=== PATIENT | female | born 1990 | race American Indian/Alaskan Native ===

== ENCOUNTER 2016-09-30 21:57 | Emergency (ER) | payer MEDICAID, OTHER ==
[2016-09-30 22:03] VITALS: BP 130/74; PULSE 104; RESP 18; TEMP 98.2; O2SAT 99
--- NOTE | 2016-09-30 22:54 | ED PDOC ---
HPI: CCC, URI, Sore Throat Time Seen by Provider: 09/30/16 22:52 Chief Complaint (Nursing): Cough, Cold, Congestion Chief Complaint (Provider): uri History Per: Patient (25 y/o female h/o Schizophrenia here with complaint of URI /nasal congestion x 2 days associated with chills. No vomiting/diarrhea/etc.) Past Medical History Reviewed: Historical Data, Nursing Documentation, Vital Signs Vital Signs: Last Vital Signs Temp 98.2 F 09/30/16 21:58 Pulse 104 H 09/30/16 21:58 Resp 18 09/30/16 21:58 BP 130/74 09/30/16 21:58 Pulse Ox 99 09/30/16 21:58 - Medical History PMH: Anxiety, Depression, Schizophrenia - Family History Family History: States: No Known Family Hx - Home Medications Home Medications: Ambulatory Orders Medication Instructions Recorded Ciprofloxacin/Dexamethasone 4 drop OT BID #1 bottle 04/03/14 [Ciprodex 0.3%-0.1% 7.5 Ml] Neomycin/Polymyxin/Hydrocortis 3 drop OT TID #1 bottle 04/04/14 [Cortisporin Otic Susp] Acetic Acid/Antipyrine/Benzo 2 drop AD TID #1 eliot 05/30/14 [Auralgan 14 ml] Acetaminophen [Acetaminophen Extra 2 tab PO Q6 PRN #24 tablet 09/30/16 Strength] Fluticasone Propionate [Flonase] 2 spr IN DAILY #1 bottle 09/30/16 Non-Formulary 1 ea IN DAILY PRN #1 ea 09/30/16 - Allergies Allergies/Adverse Reactions: Allergies Allergy/AdvReac Type Severity Reaction Status Date / Time No Known Allergies Allergy Verified 04/03/14 10:25 Review of Systems ROS Statement: Except As Marked, All Systems Reviewed And Found Negative ENT: Positive for: Nose Congestion Physical Exam - Reviewed Nursing Documentation Reviewed: Yes Vital Signs Reviewed: Yes - Physical Exam Appears: Positive for: Well, Non-toxic, No Acute Distress Head Exam: Positive for: ATRAUMATIC, NORMAL INSPECTION, NORMOCEPHALIC Skin: Positive for: Normal Color, Warm, DRY Eye Exam: Positive for: EOMI, Normal appearance, PERRL ENT: Positive for: Normal ENT Inspection, Nasal Congestion Neck: Positive for: Normal, Painless ROM Cardiovascular/Chest: Positive for: Regular Rate, Rhythm Respiratory: Positive for: CNT, Normal Breath Sounds Gastrointestinal/Abdominal: Positive for: Normal Exam, Bowel Sounds, Soft Back: Positive for: Normal Inspection Extremity: Positive for: Normal ROM Neurologic/Psych: Positive for: Alert, Oriented - ECG O2 Sat by Pulse Oximetry: 99 - Progress ED Course And Treament: acetaminophen 975mg x 1 dose Patient is on multiple medications for schizophrenia. d/w her use of nasal saline rinse instead of nasal decongestants. Disposition - Clinical Impression Clinical Impression: URI (upper respiratory infection) - Patient ED Disposition Is Patient to be Admitted: No - Disposition Disposition: Routine/Home Disposition Time: 22:55 Condition: FAIR Prescriptions: Acetaminophen [Acetaminophen Extra Strength] 2 tab PO Q6 PRN #24 tablet PRN Reason: Headache Fluticasone Propionate [Flonase] 2 spr IN DAILY #1 bottle Non-Formulary 1 ea IN DAILY PRN #1 ea PRN Reason: Cough And Congestion Instructions: Upper Respiratory Infection (ED) Forms: [facility] ED School/Work Excuse
== END 2016-09-30 23:42 | disposition home or self-care (01) ==
LOC: H.ER 21:57
DX: J06.9 Acute upper respiratory infection, unspecified (principal); F20.9 Schizophrenia, unspecified; F41.9 Anxiety disorder, unspecified

== ENCOUNTER 2016-11-17 13:26 | Inpatient (IN) | payer MEDICAID, OTHER ==
--- NOTE | 2016-11-17 14:39 | ED PDOC ---
HPI: Psych/Substance Abuse Time Seen by Provider: 11/17/16 13:33 Chief Complaint (Nursing): Psychiatric Evaluation Chief Complaint (Provider): Anxiety History Per: Patient History/Exam Limitations: no limitations Onset/Duration Of Symptoms: Days (x3) Current Symptoms Are (Timing): Still Present Suicide/Self Injury Attempted (Context): None Modifying Factor(s): None Severity: Mild Associated Symptoms: Anxiety, Depression, Paranoia Additional Complaint(s): Patient is a 26 year old female presenting ot the ED complaining of anxiety x3 days. Anxiety is associated with depression and paranoia. Patient has not been taking her psych medication for the past 3 days because she left her medication at a friends house who is currently on vacation. Denies hallucinations, suicidal ideation, and homicidal ideation. Patient subsequently complains of cough and congestion. Denies fever, shortness of breath, or chest pain. PMD: none Past Medical History Reviewed: Historical Data, Nursing Documentation, Vital Signs Vital Signs: Last Vital Signs Temp 97.3 F L 11/17/16 13:56 Pulse 106 H 11/17/16 13:56 Resp 18 11/17/16 13:56 BP 110/42 L 11/17/16 13:56 Pulse Ox 98 11/17/16 13:56 - Medical History PMH: Anxiety, Depression, Schizophrenia - Family History Family History: States: No Known Family Hx - Home Medications Home Medications: Ambulatory Orders Medication Instructions Recorded Ciprofloxacin/Dexamethasone 4 drop OT BID #1 bottle 04/03/14 [Ciprodex 0.3%-0.1% 7.5 Ml] Neomycin/Polymyxin/Hydrocortis 3 drop OT TID #1 bottle 04/04/14 [Cortisporin Otic Susp] Acetic Acid/Antipyrine/Benzo 2 drop AD TID #1 eliot 05/30/14 [Auralgan 14 ml] Acetaminophen [Acetaminophen Extra 2 tab PO Q6 PRN #24 tablet 09/30/16 Strength] Fluticasone Propionate [Flonase] 2 spr IN DAILY #1 bottle 09/30/16 Non-Formulary 1 ea IN DAILY PRN #1 ea 09/30/16 - Allergies Allergies/Adverse Reactions: Allergies Allergy/AdvReac Type Severity Reaction Status Date / Time No Known Allergies Allergy Verified 11/17/16 19:12 Review of Systems ROS Statement: Except As Marked, All Systems Reviewed And Found Negative Constitutional: Negative for: Fever Cardiovascular: Negative for: Chest Pain Respiratory: Negative for: Shortness of Breath Psych: Positive for: Anxiety, Depression, Other (paranoia). Negative for: Suicidal ideation Physical Exam - Reviewed Nursing Documentation Reviewed: Yes Vital Signs Reviewed: Yes - Physical Exam Appears: Positive for: Well, Non-toxic, No Acute Distress Head Exam: Positive for: ATRAUMATIC, NORMAL INSPECTION, NORMOCEPHALIC Skin: Positive for: Normal Color, Warm, DRY Eye Exam: Positive for: Normal appearance, EOMI Neck: Positive for: Normal, Painless ROM Cardiovascular/Chest: Positive for: Regular Rate, Rhythm. Negative for: Gallop , Murmur Respiratory: Positive for: Normal Breath Sounds. Negative for: Accessory Muscle Use, Respiratory Distress Extremity: Positive for: Normal ROM Neurologic/Psych: Positive for: Alert, Oriented, Mood/Affect (seems apprehensive but cooperative) - Laboratory Results Result Diagrams: 11/17/16 16:06 11/17/16 16:06 - ECG O2 Sat by Pulse Oximetry: 98 (RA) Pulse Ox Interpretation: Normal - Progress ED Course And Treament: Pt. evaluated by crisis and arrangements made for admission. Medical Decision Making Medical Decision Making: Time: 13:35 Impression: 26 y/o female c/o anxiety paranoia and depression Plan: Drug Screen [facility] Crisis Eval Scribe Attestation: Documented by Karlie Guzman acting as a scribe for Yovani Trejo. Provider Attestation: All medical record entries made by the Scribe were at my direction and personally dictated by me. I have reviewed the chart and agree that the record accurately reflects my personal performance of the history, physical exam, medical decision making, and the department course for this patient. I have also personally directed, reviewed, and agree with the discharge instructions and disposition. Disposition - Clinical Impression Clinical Impression: Schizoaffective disorder - Patient ED Disposition Is Patient to be Admitted: No - Disposition Disposition Time: 16:43 Condition: STABLE
[2016-11-17 16:14] LABS: BASO # 0.1 K/uL (0.0-0.2); EOS # 0.2 K/uL (0.0-0.7); NEUT # 4.8 K/uL (1.8-7.0); WHITE BLOOD COUNT 8.3 K/uL (4.8-10.8)
[2016-11-17 16:24] LABS: BASO % 0.6 % (0.0-2.0); HEMATOCRIT 36.1 % (34.0-47.0); LYMPH # 2.4 K/uL (1.0-4.3); LYMPH % 28.5 % (20.0-40.0); MEAN CELL VOLUME 92.7 fl (81.0-99.0); MEAN CORPUSCULAR HEMOGLOBIN 30.7 pg (27.0-31.0); MEAN CORPUSCULAR HGB CONC 33.2 g/dL (33.0-37.0); MEAN PLATELET VOLUME 9.5 fl (7.2-11.7); MONO # 0.9 K/uL (0.0-0.8); MONO % 11.3 % (0.0-10.0); NEUT % 57.6 % (50.0-75.0); NRBC % 0.2 % (0.0-0.0); RED CELL DISTRIBUTION WIDTH 15.3 % (11.5-14.5)
[2016-11-17 17:08] LABS: ALB/GLOB RATIO 1.1 (1.0-2.1); ALCOHOL SERUM < 10 mg/dl (0-10); ALKALINE PHOSPHATASE 59 U/L (38-126); ALT/SGPT 27 U/L (9-52); AST/SGOT 20 U/L (14-36); BILIRUBIN,TOTAL 0.1 mg/dl (0.2-1.3); BLOOD UREA NITROGEN 8 mg/dl (7-17); CARBON DIOXIDE 26 mmol/L (22-30); CHLORIDE 103 mmol/L (98-107); GFR AFRICAN-AMERICAN > 60; GLUCOSE,RANDOM 94 mg/dL (65-105); POTASSIUM 4.2 MMOL/L (3.6-5.0); SODIUM 140 mmol/l (132-148); TOTAL PROTEIN 8.6 G/DL (6.3-8.2)
[2016-11-17 18:31] LABS: URINE BILIRUBIN NEGATIVE (NEGATIVE); URINE COLOR AMBER (YELLOW); URINE GLUCOSE (UA) NEG (Normal); URINE KETONE TRACE mg/dL (NEGATIVE); URINE LEUKOCYTE ESTERASE NEG Leu/uL (Negative); URINE PROTEIN 30 mg/dL (NEGATIVE); URINE UROBILINOGEN 0.2-1.0 mg/dL (0.2-1.0)
[2016-11-17 18:32] LABS: URINE BLOOD TRACE (NEGATIVE)
[2016-11-17 23:14] VITALS: O2SAT 98
[2016-11-18] MEDS ORDERED: Magnesium Hydroxide Susp 30 ml UD PO PRN (01:41)
[2016-11-18] MEDS ORDERED: DiphenhydrAMINE 50 mg/ml Inj IM PRN (01:41)
[2016-11-18] MEDS ORDERED: Alum-Mag Hydrox-Simethicone Susp (30 mL) PO PRN (01:41)
--- NOTE | 2016-11-18 08:59 | PCM.PSYCH ---
Initial Psychiatric Evaluation - Initial Psychiatric Evaluation Type of Admission: Voluntary Legal Status: Capacity Chief Complaint (in patient's own words): "I'm been depressed" Patient's Reaction to Hospitalization: HPI: 26 y/o female presenting the ER with her [facility]. Pt reports current sx of depression and anxiety which have worsened over the past few weeks. Pt reports that her meds were left in a friend's apartment who is now on vacation and unavailable to contact. Pt reports that she has been experiencing "bad thoughts" triggered by current stressors, however denied that thoughts were related to SI or HI. Pt denied current SI/HI, attempts, intent, or plans. Pt reports a hx of auditory hallucinations, however denied current hallucinations. Pt reports currently feeling paranoid and feels that her medications are not helpful in treating her sx. Pt denied substance abuse. Collateral history obtained from ER steel construction worker: Pt's [facility] case finisher Skyler Hawley reports that pt contacted him today requesting to be transported to the hospital. Pt stated that she was having "bad thoughts", however refused to further describe the nature of her thoughts. Pt has been without medication for several days due to leaving it at her friend's house who is currently out of town. Pt has a hx of Schizoaffective Disorder, with current anxious thoughts and depressed mood. Mr. Hawley reports that the pt has never explicitly stated thoughts of wanting to harm herself or others, however Mr. Hawley reports that he is concerned that the pt may not be forthcoming with severity of thoughts. Pt is currently receiving outpatient [place] with [facility] [place] and has been compliant with treatment. PPHx: Pt was hospitalized at [facility] in May 2016. Pt is currently receiving outpatient services through [facility] [place] and is [facility] to [facility]. Pt has been compliant with treatment. Cogentin 1mg BID, Buspar 10 mg PO TID , Depakote 500 mg PO BID, Invega 156mg (next due December 10), Trazodone 50 mg PO HS , Celexa 10 mg PO Daily. MHx: Anemia All: NKDA SHx: 12th grade. Unemployed. Denies drug use or etoh use. FHx: Pt reports that her mother attempted suicide a few years ago by attempting to jump out of a window. Current Medications: Active Medications Generic Name Dose Route Start Last Admin Trade Name Freq PRN Reason Stop Dose Admin Acetaminophen 650 mg 05/22/17 01:41 Tylenol 325mg Tab PO Q4 PRN for pain 4-7 Al Hydrox/Mg Hydrox/Simethicone 30 ml 11/18/16 01:41 Maalox Plus 30 Ml PO Q4 PRN Dyspepsia Diphenhydramine HCl 50 mg 11/18/16 01:41 Benadryl IM Q6 PRN Extrapyramidal S/S Unable PO Diphenhydramine HCl 50 mg 11/18/16 01:41 Benadryl PO Q6 PRN Extrapyramidal Symptoms Lorazepam 2 mg 11/18/16 01:41 Ativan IM Q4 PRN Anxiety/Agitation,Unable PO Lorazepam 2 mg 11/18/16 01:41 Ativan PO Q4 PRN Anxiety/Agitation Magnesium Hydroxide 30 ml 11/18/16 01:41 Milk Of Magnesia PO HS PRN Constipation Past Psychiatric History - Past Psychiatric History Previous Treatment History: Inpatient Pertinent Medical Hx (Current Medical&Sleep Prob, Allergies): Allergies Allergy/AdvReac Type Severity Reaction Status Date / Time No Known Allergies Allergy Verified 11/17/16 19:12 Ciprofloxacin/Dexamethasone [Ciprodex 0.3%-0.1% 7.5 Ml] 4 drop OT BID #1 bottle 04/03/14 Neomycin/Polymyxin/Hydrocortis [Cortisporin Otic Susp] 3 drop OT TID #1 bottle 04/04/14 Acetic Acid/Antipyrine/Benzo [Auralgan 14 ml] 2 drop AD TID #1 eliot 05/30/14 Acetaminophen [Acetaminophen Extra Strength] 2 tab PO Q6 PRN #24 tablet Fluticasone Propionate [Flonase] 2 spr IN DAILY #1 bottle 09/30/16 Non-Formulary 1 ea IN DAILY PRN #1 ea 09/30/16 Review of Systems - Review of Systems All systems: reviewed and no additional remarkable complaints except - Psychiatric Psychiatric: As Per HPI, Anxiety, Depression, Mood Swings, Paranoia Mental Status Examination - Personal Presentation Personal Presentation: Looks stated age (Poor hygiene, hair unkempt) - Affect Affect: Broad - Motor Activity Motor Activity: Calm - Reliability in Providing Information Reliability in Providing Information: Fair - Speech Speech: Organized - Mood Mood: Depressed, Anxious - Formal Thought Process Formal Thought Process: Paranoia - Obsessions/Compulsions Obsessions: No Compulsions: No - Cognitive Functions Orientation: Person, Place, Situation, Time Sensorium: Alert Estimate of Intelligence: Average Judgement: Intact, as evidence by: Insight regarding need for hospitalization Memory: Recent intact, as evidence by: Ability to recall events of the day, Remote intact, as evidenced by: Abilit to recall sig. life events, Remote intact , as evidenced by: Ability to recall historical events - Risk Risk: Diminished functioning - Strength & Assets Inventory Strength & Assets Inventory: Cooperative DSM 5 DX - DSM 5 DSM 5 Diagnosis: Schizoaffective Disorder - Recommended/Plan of Treatment Treatment Recommendations and Plan of Treatment: -Admit to psychiatry -Restart home medications: Depakote 500 mg PO BID, Cogentin 1 mg PO BID, Buspar 10 mg PO TID -Increase Celexa to 20 mg PO Daily -Change Trazodone to 50 mg PO PRN as the patient reports that it makes her too tired -Invega Sustenna injection due 12/10/16, as per patient -Individual, group and milieu tx -Disposition planning Projected ELOS: 4-7 days Discharge Plan and Discharge Criteria: -Discharge when psychiatrically stable - Smoking Cessation Smoking Cessation Initiated: No Reason for not providing: Not indicated
[2016-11-18] MEDS: Divalproex 500 mg DR(BID formulation) PO SCH ×2 (10:51→16:20)
--- NOTE | 2016-11-18 14:14 | CP.PCM.CON ---
History of Present Illness - History of Present Illness History of Present Illness: 26 yo female with no significant PMH admitted to Psyche unit because of worsening depression ad anxiety. Pt also complained of nasal congestion and coughing productive with yelow sputum the last 3 days. Review of Systems - Review of Systems All systems: reviewed and no additional remarkable complaints except (aside from those mentioned above, 12 point system review were negative by me) Past Patient History - Infectious Disease Hx of Infectious Diseases: None - Tetanus Immunizations Tetanus Immunization: Unknown - Past Medical History & Family History Past Medical History?: No Past Family History: Reviewed and not pertinent - Past Social History Smoking Status: Never Smoked Chewing Tobacco Use: No Cigar Use: No Alcohol: None Drugs: Denies - CARDIAC Hx Cardiac Disorders: No - PULMONARY Hx Respiratory Disorders: No Hx Bronchitis: Yes - NEUROLOGICAL Hx Neurological Disorder: No - HEENT Hx HEENT Problems: No - RENAL Hx Chronic Kidney Disease: No - ENDOCRINE/METABOLIC Hx Endocrine Disorders: No - HEMATOLOGICAL/ONCOLOGICAL Hx Blood Disorders: No - INTEGUMENTARY Hx Dermatological Problems: No - MUSCULOSKELETAL/RHEUMATOLOGICAL Hx Musculoskeletal Disorders: No - GENITOURINARY/GYNECOLOGICAL Hx Genitourinary Disorders: No - PSYCHIATRIC Hx Depression: Yes - ANESTHESIA Hx Anesthesia: No Meds Allergies/Adverse Reactions: Allergies Allergy/AdvReac Type Severity Reaction Status Date / Time No Known Allergies Allergy Verified 11/17/16 19:12 - Medications Medications: Current Medications Acetaminophen (Tylenol 325mg Tab) 650 mg PO Q4 PRN PRN Reason: for pain 4-7 Al Hydrox/Mg Hydrox/Simethicone (Maalox Plus 30 Ml) 30 ml PO Q4 PRN PRN Reason: Dyspepsia Benztropine Mesylate (Cogentin) 1 mg PO BID [facility] Last Admin: 11/18/16 10:51 Dose: 1 mg Buspirone HCl (Buspar) 10 mg PO TID [facility] Last Admin: 11/18/16 12:10 Dose: 10 mg Citalopram Hydrobromide (Celexa) 20 mg PO DAILY [facility] Last Admin: 11/18/16 10:51 Dose: 20 mg Diphenhydramine HCl (Benadryl) 50 mg IM Q6 PRN PRN Reason: Extrapyramidal S/S Unable PO Diphenhydramine HCl (Benadryl) 50 mg PO Q6 PRN PRN Reason: Extrapyramidal Symptoms Divalproex Sodium (Depakote Dr(*Bid*)) 500 mg PO BID TRISTIN Last Admin: 11/18/16 10:51 Dose: 500 mg Lorazepam (Ativan) 2 mg IM Q4 PRN PRN Reason: Anxiety/Agitation,Unable PO Lorazepam (Ativan) 2 mg PO Q4 PRN PRN Reason: Anxiety/Agitation Magnesium Hydroxide (Milk Of Magnesia) 30 ml PO HS PRN PRN Reason: Constipation Trazodone HCl (Desyrel) 50 mg PO HS PRN PRN Reason: Insomnia Physical Exam - Constitutional Appears: No Acute Distress - Head Exam Head Exam: ATRAUMATIC - Eye Exam Eye Exam: absent: Scleral icterus - ENT Exam ENT Exam: Mucous Membranes Moist - Neck Exam Neck exam: Negative for: Meningismus - Respiratory Exam Respiratory Exam: absent: Rhonchi, Wheezes, Respiratory Distress - Cardiovascular Exam Cardiovascular Exam: REGULAR RHYTHM, +S1, +S2 - GI/Abdominal Exam GI & Abdominal Exam: Soft. absent: Tenderness - Rectal Exam Rectal Exam: Deferred - Extremities Exam Extremities exam: Negative for: pedal edema - Back Exam Back exam: NORMAL INSPECTION - Neurological Exam Neurological exam: Alert, Oriented x3 - Psychiatric Exam Psychiatric exam: Normal Affect - Skin Skin Exam: Dry, Intact Results - Vital Signs Recent Vital Signs: Last Vital Signs Temp 97.4 F L 11/18/16 06:00 Pulse 93 H 11/18/16 06:00 Resp 18 11/18/16 06:00 BP 118/73 11/18/16 06:00 Pulse Ox 98 11/17/16 23:13 - Labs Result Diagrams: 11/17/16 16:06 11/17/16 16:06 Labs: Laboratory Results - last 24 hr 11/17/16 17:25 Valproic Acid 60.0 Assessment & Plan (1) Depression Status: Acute Comment: psyche is managing
[2016-11-19] MEDS: Divalproex 500 mg DR(BID formulation) PO SCH ×2 (08:31→17:01)
--- NOTE | 2016-11-19 10:01 | PCM.PYCHPN ---
Psychiatric Progress Note - Psychiatric Progress Note Patient seen today, length of contact: Patient evaluated, case discussed with team, chart reviewed, 35 min Patient Chief Complaint: "I'm feeling paranoid." Problems Identified/Issues Discussed: Patient reports that she is feeling very paranoid and worried that someone want to harm her. She reports that she continues to feel depressed and distressed by the paranoia. +Anxiety. NO SI/HI. Medication Change: Yes (Start Risperdal 1 mg PO Daily) Medical Record Reviewed: Yes Consults ordered or reviewed: Medicine Consult Mental Status Examination - Cognitive Function Orientation: Person, Place, Situation, Time Memory: Intact Attention: WNL Concentration: WNL Association: WN Fund of Knowledge: WN - Mood Mood: Depressed, Anxious - Affect Affect: Constricted - Speech Speech: Appropriate - Formal Thought Process Formal Thought Process: Paranoia Psychotic Thoughts and Behaviors: +Paranoia - Suicidal Ideation Suicidal Ideation: No - Homicidal Ideation Homicidal Ideation: No Goal/Treatment Plan - Goal/Treatment Plan Need for Continued Stay: Remain at risks for inpatient hospitalization, Discharge may exacerbated symptoms Progress Toward Problem(s) and Goals/Treatment Plan: 26 yo female w/ history of schizoaffective disorder, continues to report significant paranoia and depression. Needs continued hospitalization for treatment and stabilization. -Continue Depakote 500 mg PO BID, Cogentin 1 mg PO BID, Buspar 10 mg PO TID -Continue Celexa 20 mg PO Daily -Start Risperdal 1 mg PO Daily -Continue Trazodone 50 mg PO PRN -Invega Sustenna injection due 12/10/16, as per patient -Individual, group and milieu tx -Disposition planning Estimated Date of D/C: 11/25/16
[2016-11-19] MEDS: guaiFENesin DM 200 mg-20 mg/10 ml UD PO PRN ×2 (12:58→19:14)
[2016-11-20] MEDS: guaiFENesin DM 200 mg-20 mg/10 ml UD PO PRN ×2 (08:35→17:15)
[2016-11-20] MEDS: Divalproex 500 mg DR(BID formulation) PO SCH ×2 (08:36→17:15)
--- NOTE | 2016-11-20 10:08 | RAD ---
HISTORY: cough with yellow sputum COMPARISON: No prior. TECHNIQUE: Chest PA and lateral FINDINGS: LUNGS: No focal consolidation. The interstitial markings are slightly increased and coarsened with a few scattered peribronchial cuffing changes. Rule out sequela of reactive/inflammatory airway disease and or viral illness. . Note is made of a vague small elliptical shaped nodular density right lateral upper lung field overlying the right anterior 2nd rib. This could represent confluence of shadow artifact however possibility of a small osteoma or bone island versus mild parenchymal nodule not completely excluded. Followup radiographs in 2 months suggested to assess stability. PLEURA: No significant pleural effusion identified. No pneumothorax apparent. CARDIOVASCULAR: Normal. OSSEOUS STRUCTURES: No significant abnormalities. VISUALIZED UPPER ABDOMEN: Normal. OTHER FINDINGS: None. IMPRESSION: No focal consolidation. The interstitial markings are slightly increased and coarsened with a few scattered peribronchial cuffing changes. Rule out sequela of reactive/inflammatory airway disease and or viral illness. Note is made of a vague small elliptical shaped nodular density right lateral upper lung field overlying the right anterior 2nd rib. This could represent confluence of shadow artifact however possibility of a small osteoma or bone island versus mild parenchymal nodule not completely excluded. Followup radiographs in 2 months suggested to assess stability.
--- NOTE | 2016-11-20 10:27 | PCM.PYCHPN ---
Psychiatric Progress Note - Psychiatric Progress Note Patient seen today, length of contact: Patient evaluated, case discussed with team, chart reviewed, 35 min Patient Chief Complaint: "I'm feeling less paranoid." Problems Identified/Issues Discussed: Patient reports that she is feeling less paranoid and she believes the Risperdal is helping. No adverse effects to medications noted. She reports that she continues to feel intermittently distressed by the paranoia. NO SI/ HI. Medication Change: No Medical Record Reviewed: Yes Consults ordered or reviewed: Medicine consult Mental Status Examination - Cognitive Function Orientation: Person, Place, Situation, Time Memory: Intact Attention: WNL Concentration: WNL Association: WNL Fund of Knowledge: [facility] Decription of patient's judgement and insights: Fair I/J - Mood Mood: Anxious - Affect Affect: Constricted - Speech Speech: Appropriate - Formal Thought Process Formal Thought Process: Paranoia Psychotic Thoughts and Behaviors: +Paranoia is improving - Suicidal Ideation Suicidal Ideation: No - Homicidal Ideation Homicidal Ideation: No Goal/Treatment Plan - Goal/Treatment Plan Need for Continued Stay: Remain at risks for inpatient hospitalization, Discharge may exacerbated symptoms Progress Toward Problem(s) and Goals/Treatment Plan: 26 yo female w/ history of schizoaffective disorder, now reporting some improvement in her depression and paranoia, needs continued hospitalization for treatment and stabilization. -Continue Depakote 500 mg PO BID, Cogentin 1 mg PO BID, Buspar 10 mg PO TID -Continue Celexa 20 mg PO Daily -Continue Risperdal 1 mg PO Daily -Continue Trazodone 50 mg PO PRN -Invega Sustenna injection due 12/10/16, as per patient -Individual, group and milieu tx -Disposition planning- Possible discharge Friday if the patient continues to improve clinically. Estimated Date of D/C: 11/22/16
--- NOTE | 2016-11-21 08:57 | PCM.PYCHPN ---
Psychiatric Progress Note - Psychiatric Progress Note Patient seen today, length of contact: Patient evaluated, case discussed with team, chart reviewed, 35 min Patient Chief Complaint: "I'm feeling less paranoid." Problems Identified/Issues Discussed: No significant events overnight. Patient continues to improve clinically. Patient reports that she is feeling less paranoid and she believes the Risperdal is helping. No adverse effects to medications noted. NO SI/HI. Medication Change: No Medical Record Reviewed: Yes Mental Status Examination - Cognitive Function Orientation: Person, Place, Situation, Time Memory: Intact Attention: WNL Concentration: WNL Association: WNL Fund of Knowledge: [facility] Decription of patient's judgement and insights: Fair I/J - Mood Mood: Anxious - Affect Affect: Constricted - Speech Speech: Appropriate - Formal Thought Process Formal Thought Process: Paranoia Psychotic Thoughts and Behaviors: +Paranoia is improving - Suicidal Ideation Suicidal Ideation: No - Homicidal Ideation Homicidal Ideation: No Goal/Treatment Plan - Goal/Treatment Plan Need for Continued Stay: Remain at risks for inpatient hospitalization, Discharge may exacerbated symptoms Progress Toward Problem(s) and Goals/Treatment Plan: 26 yo female w/ history of schizoaffective disorder, now reporting improvement in her depression and paranoia, needs continued hospitalization for treatment and stabilization. -Continue Depakote 500 mg PO BID, Cogentin 1 mg PO BID, Buspar 10 mg PO TID -Continue Celexa 20 mg PO Daily -Continue Risperdal 1 mg PO Daily -Stop Trazodone -Invega Sustenna injection due 12/10/16, as per patient -Individual, group and milieu tx -Disposition planning- Likely discharge Friday if the patient continues to improve clinically. Estimated Date of D/C: 11/22/16 - Smoking Cessation Smoking Cessation Initiated: No Reason for not providing: Not indicated
[2016-11-21] MEDS: guaiFENesin DM 200 mg-20 mg/10 ml UD PO PRN ×2 (09:00→17:06)
[2016-11-21] MEDS: Divalproex 500 mg DR(BID formulation) PO SCH ×2 (09:00→17:05)
[2016-11-22 06:04] VITALS: BP 98/59; PULSE 66; RESP 19; TEMP 97.1
--- NOTE | 2016-11-22 08:23 | PCM.PYCHDC ---
Mental Status Examination - Mental Status Examination Orientation: Person, Place, Situation, Time Memory: Intact Mood: Neutral Affect: Broad Speech: Appropriate Attention: WNL Concentration: WNL Association: WNL Fund of Knowledge: WNL Formal Thought Process: No Impairment Description of patient's judgement and insight: Fair I/J Psychotic Thoughts and Behaviors: No AH/VH/paranoia Suicidal Ideation: No Current Homicidal Ideation?: No Discharge Summary - Discharge Note Reason for Hospitalization: HPI: 26 y/o female presenting the ER with her [facility] case checker. Pt reports current sx of depression and anxiety which have worsened over the past few weeks. Pt reports that her meds were left in a friend's apartment who is now on vacation and unavailable to contact. Pt reports that she has been experiencing "bad thoughts" triggered by current stressors, however denied that thoughts were related to SI or HI. Pt denied current SI/HI, attempts, intent, or plans. Pt reports a hx of auditory hallucinations, however denied current hallucinations. Pt reports currently feeling paranoid and feels that her medications are not helpful in treating her sx. Pt denied substance abuse. Collateral history obtained from ER stamping die try out worker: Pt's [facility] case checker Skyler Hawley reports that pt contacted him today requesting to be transported to the hospital. Pt stated that she was having "bad thoughts", however refused to further describe the nature of her thoughts. Pt has been without medication for several days due to leaving it at her friend's house who is currently out of town. Pt has a hx of Schizoaffective Disorder, with current anxious thoughts and depressed mood. Mr. Hawley reports that the pt has never explicitly stated thoughts of wanting to harm herself or others, however Mr. Hawley reports that he is concerned that the pt may not be forthcoming with severity of thoughts. Pt is currently receiving outpatient treatment with [facility] partial care program and has been compliant with treatment. PPHx: Pt was hospitalized at [facility] in May 2016. Pt is currently receiving outpatient services through [facility] partial care and is linked to [facility]. Pt has been compliant with treatment. Cogentin 1mg BID, Buspar 10 mg PO TID , Depakote 500 mg PO BID, Invega 156mg (next due December 10), Trazodone 50 mg PO HS , Celexa 10 mg PO Daily. MHx: Anemia All: NKDA SHx: 12th grade. Unemployed. Denies drug use or etoh use. FHx: Pt reports that her mother attempted suicide a few years ago by attempting to jump out of a window. Consultations:: List each consultation separately and include: 1. Reason for request. 2. Findings. 3. Follow-up Consultations: Medicine consult Summary of Hospital Course include:: 1. Description of specific treatment plan utilized for patients during their course of treatmen. 2. Summarize the time- course for resolution of acute symptoms and/or regressed behaviors. 3. Describe issues identified and worked on during hospitalization. 4. Describe medication utilized. 5. Describe medical problems identified and treated. 6. Reassessment of suicide risk Summary of Hospital Course: Patient was admitted to the hospital and she was stabilized on the medications listed below. She participated in individual and group therapy. Patient no longer reports depression or paranoia. She would benefit from continued outpatient follow-up and medications. Patient started on Azithromycin for a URI. - Final Diagnosis (DSM 5) Condition upon Discharge: FAIR DSM 5: Schizoaffective Disorder Disposition: HOME/ ROUTINE Follow-up Treatment Plan: 26 yo female w/ history of schizoaffective disorder, now reporting improvement in her depression and paranoia, is psychiatrically stable for discharge. -Continue Depakote 500 mg PO BID, Cogentin 1 mg PO BID, Buspar 10 mg PO TID -Continue Celexa 20 mg PO Daily -Continue Risperdal 1 mg PO Daily -Stop Trazodone -Invega Sustenna injection due 12/10/16, should be 234 mg Qmonthly -Individual, group and milieu tx -Discharge today with outpatient follow-up Prescriptions/Medication Reconciliation: Azithromycin [Zithromax] 250 mg PO DAILY #3 tab Benztropine [Cogentin] 1 mg PO BID #60 tab busPIRone [Buspar] 10 mg PO TID #90 tab Citalopram [celEXA] 20 mg PO DAILY #30 tab Divalproex [Depakote DR(*BID*)] 500 mg PO BID #60 tcp Fluticasone Propionate [Flonase] 2 spr TESSA DAILY #1 bottle risperiDONE [RisperDAL Tab] 1 mg PO DAILY #30 tab - Smoking Cessation Smoking Cessation Medication prescribed: No Reason for not providing: Not indicated - Antipsychotic Medications Pt discharged on 2 or more routine antipsychotic medications: Yes - Justification for 2 or more meds Plan to taper monotherapy: List medications: Patient only temporarily on two antipsychotics (Risperdal PO and Invega Sustenna) until she can get her next standing dosage of Invega Sustenna, then will go back to taking one antipsychotic
[2016-11-22] MEDS: Divalproex 500 mg DR(BID formulation) PO SCH (09:19)
[2016-11-22] MEDS: guaiFENesin DM 200 mg-20 mg/10 ml UD PO PRN (09:24)
== END 2016-11-22 13:00 | disposition home or self-care (01) | DRG 430 ==
LOC: H.ER 13:26 → H.ERHOLD 16:43 → H.STEP 22:11
PROVIDERS: ADMIT Psychiatry & Neurology Psychiatry; ATTEND Psychiatry & Neurology Psychiatry
DX: F25.9 Schizoaffective disorder, unspecified (principal); F22 Delusional disorders; F32.9 Major depressive disorder, single episode, unspecified; F41.9 Anxiety disorder, unspecified; D64.9 Anemia, unspecified; J06.9 Acute upper respiratory infection, unspecified

== ENCOUNTER 2017-06-17 12:39 | Inpatient (IN) | payer MEDICAID, OTHER ==
--- NOTE | 2017-06-17 14:23 | ED PDOC ---
HPI: Psych/Substance Abuse Time Seen by Provider: 06/17/17 13:37 Chief Complaint (Nursing): Psychiatric Evaluation Chief Complaint (Provider): "I feel paranoid" History Per: Patient History/Exam Limitations: no limitations Onset/Duration Of Symptoms: Days Current Symptoms Are (Timing): Still Present Additional Complaint(s): Pt states she was in partial care and her case filler wanted her to come to the ER and be evaluated. Pt reports taking medication as prescribed. Pt denies SI/ HI. Pt states she is feeling paranoid at school and work. Past Medical History Reviewed: Historical Data, Nursing Documentation, Vital Signs Vital Signs: Last Vital Signs Temp 98.7 F 06/17/17 13:23 Pulse 101 H 06/17/17 13:23 Resp 16 06/17/17 13:23 BP 144/80 06/17/17 13:23 Pulse Ox 98 06/17/17 13:23 - Medical History PMH: Anemia, Anxiety, Bronchitis, Depression, Schizophrenia Denies: Chronic Kidney Disease - Surgical History Surgical History: No Surg Hx - Family History Family History: States: No Known Family Hx - Living Arrangements Living Arrangements: With Family - Social History Current smoker - smoking cessation education provided: No Alcohol: None Drugs: Denies - Home Medications Home Medications: Ambulatory Orders Medication Instructions Recorded Azithromycin [Zithromax] 250 mg PO DAILY #3 tab 11/21/16 Benztropine [Cogentin] 1 mg PO BID #60 tab 11/21/16 Citalopram [celEXA] 20 mg PO DAILY #30 tab 11/21/16 Divalproex [Depakote DR(*BID*)] 500 mg PO BID #60 tcp 11/21/16 Fluticasone Propionate [Flonase] 2 spr TESSA DAILY #1 bottle 11/21/16 busPIRone [Buspar] 10 mg PO TID #90 tab 11/21/16 risperiDONE [RisperDAL Tab] 1 mg PO DAILY #30 tab 11/21/16 - Allergies Allergies/Adverse Reactions: Allergies Allergy/AdvReac Type Severity Reaction Status Date / Time haloperidol [From Haldol] Allergy ANGIOEDEMA Verified 06/17/17 13:23 Review of Systems ROS Statement: Except As Marked, All Systems Reviewed And Found Negative Constitutional: Negative for: Fever, Chills Psych: Positive for: Psychosis. Negative for: Anxiety, Suicidal ideation Physical Exam - Reviewed Nursing Documentation Reviewed: Yes Vital Signs Reviewed: Yes - Physical Exam Appears: Positive for: Well, Non-toxic, No Acute Distress Head Exam: Positive for: ATRAUMATIC, NORMAL INSPECTION, NORMOCEPHALIC Skin: Positive for: Normal Color, Warm, DRY Eye Exam: Positive for: Normal appearance ENT: Positive for: Normal ENT Inspection Neck: Positive for: Normal, Painless ROM Cardiovascular/Chest: Positive for: Regular Rate, Rhythm Respiratory: Positive for: CNT, Normal Breath Sounds Gastrointestinal/Abdominal: Positive for: Normal Exam, Bowel Sounds, Soft Back: Positive for: Normal Inspection Extremity: Positive for: Normal ROM Neurologic/Psych: Positive for: Alert, Oriented - Laboratory Results Result Diagrams: 06/17/17 14:40 06/17/17 14:40 - ECG O2 Sat by Pulse Oximetry: 98 Medical Decision Making Medical Decision Makin - Crisis aware. 1740 - Crisis in room evaluation patient. Pt admitted by patient for evaluation. Disposition - Clinical Impression Clinical Impression: Schizophrenia - Patient ED Disposition Is Patient to be Admitted: Yes - Disposition Disposition Time: 18:34 Condition: STABLE - Pt Status Changed To: Hospital Disposition Of: Inpatient - Admit Certification Admit to Inpatient:: After my assessment, the patient will require hospitalization for at least two midnights. This is because of the severity of symptoms shown, intensity of services needed, and/or the medical risk in this patient being treated as an outpatient. - POA Present On Arrival: None
[2017-06-17 14:51] LABS: HEMOGLOBIN 12.3 g/dL (12.0-16.0); MEAN CELL VOLUME 91.4 fl (81.0-99.0); MEAN CORPUSCULAR HEMOGLOBIN 30.3 pg (27.0-31.0); MEAN CORPUSCULAR HGB CONC 33.1 g/dL (33.0-37.0); RBC 4.07 Mil/uL (3.80-5.20); RED CELL DISTRIBUTION WIDTH 13.1 % (11.5-14.5); WHITE BLOOD COUNT 6.8 K/uL (4.8-10.8)
[2017-06-17 14:58] LABS: ALB/GLOB RATIO 1.2 (1.0-2.1); ALBUMIN 4.5 g/dL (3.5-5.0); ALT/SGPT 27 U/L (9-52); AST/SGOT 17 U/L (14-36); BLOOD UREA NITROGEN 10 mg/dl (7-17); CALCIUM 9.3 mg/dL (8.4-10.2); GFR AFRICAN-AMERICAN > 60; GFR NON-AFRICAN AMERICAN > 60
[2017-06-17 15:11] LABS: BARBITURATES, UR NEGATIVE (NEGATIVE); BENZODIAZEPINES, UR NEGATIVE (NEGATIVE); OPIATES, UR NEGATIVE (NEGATIVE); PHENCYCLIDINE, UR NEGATIVE (NEGATIVE)
[2017-06-17] MEDS ORDERED: Alum-Mag Hydrox-Simethicone Susp (30 mL) PO PRN (23:04)
[2017-06-17] MEDS ORDERED: Magnesium Hydroxide Susp 30 ml UD PO PRN (23:04)
[2017-06-17] MEDS ORDERED: DiphenhydrAMINE 50 mg/ml Inj IM PRN (23:04)
--- NOTE | 2017-06-18 02:11 | PCM.BM ---
<Yuki Gonzalez - Last Filed: 06/18/17 02:09> Treatment Plan Problems - Problems identified on initial assessmt Delusions Date Initiated: 06/18/17 Time Initiated: 02:09 Assessment reference: NA Status: Active Auditory Hallucinations Date Initiated: 06/18/17 Time Initiated: 02:09 Assessment reference: NA Status: Active Treatment assets and liabiliti Patient Assests: cooperative, ADL independent, physically healthy, negotiates basic needs Patient Liabilities: live alone, poor support system - Milieu Protocol Maintain good personal hygiene: daily Encourage regular showers, every shift Remind patient to perform daily oral care Maintain personal safety: every shift Educate patient to report safety concerns to staff, every shift Monitor environment for contraband/sharps Medication safety: Monitor for expected outcome, potential side effects: every shift, Assess barriers to learning: every shift, Assess readiness for medication education: every shift <Maru Rivas - Last Filed: 06/19/17 15:48> Treatment assets and liabiliti Patient Assests: adapts well, cooperative, ADL independent, physically healthy, good support system, negotiates basic needs Patient Liabilities: poor support system Family Contact Family involvement: Family/SO is involved Family contact: Patient agrees to contact, Family has been contacted by patient , Telephone contact initiated by staff Family contact name: Nate(aunt)([phone]) Family contacted how many times per week?: 2 Family contact comment: Wind Farm [employer]er placed call to patients aunt (Nate [phone] ) to discuss precursors to hospitalization and progress on 3NP. Patients aunt reports that she checks in with patient frequently but has been unable to visit recently due to having to care for patients grandmother. Patients aunt reports that patient used to reside with her but started to get threatening towards her children and had to find alternate housing. Nate expressed concerns regarding possibility of patient harming herself or others while decompensated. As per patients aunt patient has hx of being inconsistently compliant with medications. Nate requested psychoeducation regarding mental illness and medication management. Psychoeducation provided. Wind Farm Designer emphasized importance of compliance with aftercare to reduce risk of future hospitalizations and improve functioning in the community. Wind Farm Designer notified Nate that patient will be placed on a 1:1 on 3NP secondary to inabiliy to contract for saftey at present time. Patients aunt expressed understanding of the above. Wind Farm Designer provided unit payphones and visitation hours. Wind Farm Designer to continue providing clinical updates through-out patients hospitalization. - Outside Agency Agency 1 Care involvment: Following patient during stay, Other Agency contact name: [facility] Agency contact number: [phone] Agency 2 Care involvment: Following patient during stay, Other Agency contact name: [facility] Agency contact number: [phone] - Goals for Treatment Patient goals for treatment: Patient to continue stabilization on 3NP through medication management and group/supportive therapy. Patient to be encouraged to attend groups regularly to promote self-awareness, compliance, and improve insight, coping skills and self-esteem. Patient to be provided with referral for appropriate level of aftercare to reduce risk of future hospitalizations and ensure safety in the community. Discharge/Continuing Care - Education Needs Education Needs: Family Medication, Family Coping Skills, Family Community resources, Family Aftercare Safety Plan, Patient Medication, Patient Coping Skills, Patient Community resources, Patient Aftercare Safety Plan - Discharge Discharge Criteria: Tolerates medication w/o severe side effects, Free of Suicidal thoughts, Free of Homicidal thoughts, Free of paranoid thoughts, Free of agitation, Normal sleep pattern, Ability to care for self, Reduction of target symptoms Discharge to:: Home, Other <Abby Garibay - Last Filed: 06/20/17 12:00> - Diagnosis (1) Schizoaffective disorder Status: Acute Interventions: 06/20/17 12:00 psychotherapy pharmacotherapy
[2017-06-18 08:43] LABS: T4 8.92 ug/dl (5.5-11.0)
--- NOTE | 2017-06-18 14:02 | PCM.PSYCH ---
Initial Psychiatric Evaluation - Initial Psychiatric Evaluation Type of Admission: Voluntary Legal Status: Capacity Chief Complaint (in patient's own words): i hear voices telling me to stop Patient's Reaction to Hospitalization: pt requested help History of Present Illness and Precipitating Events: pt. is a 26 year old AA single female previous diagnosis of schizoaffective disorder, [facility] Pt. reported coming to ER because her worker told her to come here. Pt. reported being paranoid, having thoughts of being followed and persecutted from people who worked with her because they believe she killed her mother. Pt. is fearful she would hurt herself due to these intruding thoughts. Pt. also reported non command auditory hallucinations making her anxious, pt requested admission for medication stabilization Current Medications: Active Medications Generic Name Dose Route Start Last Admin Trade Name Freq PRN Reason Stop Dose Admin Acetaminophen 650 mg 06/17/17 23:04 Tylenol 325mg Tab PO Q4 PRN pain level 3 to 7 Al Hydrox/Mg Hydrox/Simethicone 30 ml 06/17/17 23:04 Maalox Plus 30 Ml PO Q4 PRN Dyspepsia Benztropine Mesylate 0.5 mg 06/18/17 09:00 06/18/17 12:42 Cogentin PO 0.5 mg DAILY TRISTIN Administration Diphenhydramine HCl 50 mg 06/17/17 23:04 Benadryl IM Q6 PRN Extrapyramidal S/S Unable PO Diphenhydramine HCl 50 mg 06/17/17 23:04 Benadryl PO Q6 PRN Extrapyramidal Symptoms Diphenhydramine HCl 50 mg 06/17/17 23:08 Benadryl PO HS PRN Sleep Lorazepam 2 mg 06/17/17 23:04 Ativan IM Q4 PRN Anxiety/Agitation,Unable PO Lorazepam 2 mg 06/17/17 23:04 Ativan PO Q4 PRN Anxiety/Agitation Magnesium Hydroxide 30 ml 06/17/17 23:04 Milk Of Magnesia PO HS PRN Constipation Mirtazapine 30 mg 06/17/17 22:00 06/17/17 23:56 Remeron PO 30 mg HS TRISTIN Administration Risperidone 2 mg 06/18/17 09:00 06/18/17 12:43 Risperdal Tab PO 2 mg BID TRISTIN Administration Trazodone HCl 50 mg 06/17/17 22:00 06/17/17 23:56 Desyrel PO 50 mg HS TRISTIN Administration Past Psychiatric History - Past Psychiatric History Previous Treatment History: Inpatient Explanation of prior treatment: multiple inpatient hospitalizations for psychotic symptoms History of Abuse: denied History of ETOH/Drug Use: denied History of Family Illness: denied Pertinent Medical Hx (Current Medical&Sleep Prob, Allergies): Allergies Allergy/AdvReac Type Severity Reaction Status Date / Time haloperidol [From Haldol] Allergy ANGIOEDEMA Verified 06/17/17 13:23 Benztropine [Cogentin] 0.5 mg PO DAILY 06/17/17 Citalopram Hydrobromide [Citalopram HBr] 40 mg PO DAILY 06/17/17 Mirtazapine [Remeron] 30 mg PO HS 06/17/17 Risperidone [Risperdal] 2 mg PO Q12H 06/17/17 busPIRone [Buspar] 10 mg PO Q12H 06/17/17 traZODone [Desyrel] 50 mg PO HS 06/17/17 Mental Status Examination - Personal Presentation Personal Presentation: Looks older than stated age Additional comments: unkempt - Affect Affect: Constricted, Blunted - Motor Activity Motor Activity: Psychomotor Retardation - Reliability in Providing Information Reliability in Providing Information: Poor, due to alteration in thoughts, Poor , due to altered mood - Speech Speech: Disorganized - Mood Mood: Anxious - Formal Thought Process Formal Thought Process: Delusions, Paranoia, Circumstantial - Hallucinations/Delusions Hallucinations: Auditory Additional comments: pt reported non command auditory hallucinations - Obsessions/Compulsions Obsessions: No Compulsions: No - Cognitive Functions Orientation: Person, Place Sensorium: Alert Attention/Concentration: Easily distracted Abstract Thinking: [place] Judgement: Imparied, as evidence by: Poor judgement, Imparied, as evidence by: Lack of insight into illness - Risk Risk: Diminished functioning - Strength & Assets Inventory Strength & Assets Inventory: Life experience - Limitations Additional comments: poor social support DSM 5 DX - DSM 5 DSM 5 Diagnosis: schizoaffectine disorder bipolar - Recommended/Plan of Treatment Treatment Recommendations and Plan of Treatment: start risperidone 1mg bid will attaempt to change pt from invega to risperidone consta group and supportive therapy Projected ELOS: 7 days Prognosis: guarded Discharge Plan and Discharge Criteria: pt no longer disorganized
[2017-06-19] MEDS ORDERED: risperiDONE Consta 25mg/2ml Syringe IM ONE (13:10)
--- NOTE | 2017-06-19 13:29 | PCM.PYCHPN ---
Psychiatric Progress Note - Psychiatric Progress Note Patient seen today, length of contact: pt evaluated discussed with team chart reviewed Patient Chief Complaint: I will try the risperidone injection Problems Identified/Issues Discussed: pt seen in bed, dressed in a hospital gown, unkempt , isolative, pt reported continues to experience non command auditory hallucinations making her anxious, also feeling down and anhedonic discussed with pt starting risperidone consta injection, for more pharmacological efficacy as she continues to experience psychotic symptoms on Invegs, pt agreed denied any current S/H I denied side effects of oral risperidone Medical Problems: multiple inpatient hospitalizations for psychotic symptoms DSM 5 Symptoms Update: schizoaffective disorder bipolar Medication Change: Yes (start risperidone consta) Medical Record Reviewed: Yes Mental Status Examination - Cognitive Function Orientation: Person, Place Memory: Intact Attention: Poor Concentration: Poor Association: WNL Fund of Knowledge: Poor - Mood Mood: Depressed, Anxious - Affect Affect: Constricted, Blunted - Speech Speech: Soft Additional comments: underproductive - Formal Thought Process Formal Thought Process: Delusions, Paranoia, Circumstantial - Suicidal Ideation Suicidal Ideation: No - Homicidal Ideation Homicidal Ideation: No Goal/Treatment Plan - Goal/Treatment Plan Need for Continued Stay: Discharge may exacerbated symptoms Progress Toward Problem(s) and Goals/Treatment Plan: decrease oral risperidone to 1mg bid start risperidone consta 25mg im vistaril prn for anxiety, remeron 30mg qhs for depression group and supportive therapy
--- NOTE | 2017-06-19 13:40 | CP.PCM.CON ---
<Moreno Maurer - Last Filed: 06/19/17 13:45> History of Present Illness - History of Present Illness History of Present Illness: HPI: Patient is a 26 y/o female with Schitzoaffective disorder who presented to the hospital because she was having paranoid thoughts and auditory hallucinations that she believes may have led her to harm herself or others. Patient denies suicidal ideations or attempts but states that she was pressured to kill herself by these voices and was advised by her lead case manager to go to the hospital. Pt states that she has been compliant with all of her medications. PMD: [place] PMHX: Schitzoaffective Disorder PSurgical Hx: Denies Allergies: Haloperidol Family Hx: Uncle- Schitzophrenia Social: Lives in custodial, denies alcohol use, smoking, or illicit drug use Past Patient History - Infectious Disease Hx of Infectious Diseases: None - Tetanus Immunizations Tetanus Immunization: Unknown - Past Medical History & Family History Past Medical History?: No - Past Social History Smoking Status: Never Smoked - CARDIAC Hx Cardiac Disorders: No - PULMONARY Hx Respiratory Disorders: Yes Hx Bronchitis: Yes - NEUROLOGICAL Hx Neurological Disorder: No - HEENT Hx HEENT Problems: No - RENAL Hx Chronic Kidney Disease: No - ENDOCRINE/METABOLIC Hx Endocrine Disorders: No - HEMATOLOGICAL/ONCOLOGICAL Hx Blood Disorders: Yes Hx Anemia: Yes - INTEGUMENTARY Hx Dermatological Problems: No - MUSCULOSKELETAL/RHEUMATOLOGICAL Hx Musculoskeletal Disorders: No - GASTROINTESTINAL Hx Gastrointestinal Disorders: No - GENITOURINARY/GYNECOLOGICAL Hx Genitourinary Disorders: No - PSYCHIATRIC Hx Substance Use: No - SURGICAL HISTORY Hx Surgeries: No - ANESTHESIA Hx Anesthesia: No Meds Allergies/Adverse Reactions: Allergies Allergy/AdvReac Type Severity Reaction Status Date / Time haloperidol [From Haldol] Allergy ANGIOEDEMA Verified 06/17/17 13:23 - Medications Medications: Current Medications Acetaminophen (Tylenol 325mg Tab) 650 mg PO Q4 PRN PRN Reason: pain level 3 to 7 Al Hydrox/Mg Hydrox/Simethicone (Maalox Plus 30 Ml) 30 ml PO Q4 PRN PRN Reason: Dyspepsia Diphenhydramine HCl (Benadryl) 50 mg IM Q6 PRN PRN Reason: Extrapyramidal S/S Unable PO Diphenhydramine HCl (Benadryl) 50 mg PO Q6 PRN PRN Reason: Extrapyramidal Symptoms Diphenhydramine HCl (Benadryl) 50 mg PO HS PRN PRN Reason: Sleep Hydroxyzine Pamoate (Vistaril) 25 mg PO TID PRN PRN Reason: Anxiety Lorazepam (Ativan) 2 mg IM Q4 PRN PRN Reason: Anxiety/Agitation,Unable PO Lorazepam (Ativan) 2 mg PO Q4 PRN PRN Reason: Anxiety/Agitation Last Admin: 06/19/17 12:52 Dose: 2 mg Magnesium Hydroxide (Milk Of Magnesia) 30 ml PO HS PRN PRN Reason: Constipation Mirtazapine (Remeron) 30 mg PO HS TRISTIN Last Admin: 06/18/17 21:44 Dose: 30 mg Risperidone (Risperdal M-Tab) 1 mg PO DAILY TRISTIN Physical Exam - Constitutional Appears: Well, Non-toxic, No Acute Distress, Unkempt - Head Exam Head Exam: ATRAUMATIC, NORMAL INSPECTION - Eye Exam Eye Exam: Normal appearance - ENT Exam ENT Exam: Mucous Membranes Moist - Respiratory Exam Respiratory Exam: Clear to Auscultation Bilateral. absent: Rales, Wheezes - Cardiovascular Exam Cardiovascular Exam: REGULAR RHYTHM, +S1, +S2 - GI/Abdominal Exam GI & Abdominal Exam: Soft. absent: Tenderness - Neurological Exam Neurological exam: Alert, Oriented x3 - Psychiatric Exam Psychiatric exam: Anxious, Depressed, Flat Affect Additional comments: Tearful - Skin Skin Exam: Normal Color Results - Vital Signs Recent Vital Signs: Last Vital Signs Temp 98.1 F 06/18/17 16:32 Pulse 110 H 06/18/17 16:32 Resp 20 06/18/17 16:32 BP 128/78 06/18/17 16:32 Pulse Ox 98 06/17/17 22:12 - Labs Result Diagrams: 06/17/17 14:40 06/17/17 14:40 Labs: Laboratory Results - last 24 hr 06/18/17 06/18/17 08:03 08:03 Hemoglobin A1c 5.0 RPR Nonreactive Assessment & Plan - Assessment and Plan (Free Text) Assessment: Patient is a 26 y/o female with Schitzoaffective disorder admitted for suicidal ideation in the presence of persecutory auditory hallucinations. #Schizoaffective Disorder, acute -as per psychiatry -Currently receiving Risperidone injections -Ativan prn #Sinus Tachycardia -Likely anxiety related -Thyroid labs normal -U tox normal -Will continue to monitor #Diet -Regular <James Díaz - Last Filed: 06/19/17 15:26> Meds - Medications Medications: Current Medications Acetaminophen (Tylenol 325mg Tab) 650 mg PO Q4 PRN PRN Reason: pain level 3 to 7 Al Hydrox/Mg Hydrox/Simethicone (Maalox Plus 30 Ml) 30 ml PO Q4 PRN PRN Reason: Dyspepsia Chlorpromazine (Thorazine) 50 mg PO Q12 PRN PRN Reason: Agitation Diphenhydramine HCl (Benadryl) 50 mg IM Q6 PRN PRN Reason: Extrapyramidal S/S Unable PO Diphenhydramine HCl (Benadryl) 50 mg PO Q6 PRN PRN Reason: Extrapyramidal Symptoms Diphenhydramine HCl (Benadryl) 50 mg PO HS PRN PRN Reason: Sleep Hydroxyzine Pamoate (Vistaril) 25 mg PO TID PRN PRN Reason: Anxiety Lorazepam (Ativan) 2 mg IM Q4 PRN PRN Reason: Anxiety/Agitation,Unable PO Lorazepam (Ativan) 2 mg PO Q4 PRN PRN Reason: Anxiety/Agitation Last Admin: 06/19/17 12:52 Dose: 2 mg Magnesium Hydroxide (Milk Of Magnesia) 30 ml PO HS PRN PRN Reason: Constipation Mirtazapine (Remeron) 30 mg PO HS TRISTIN Last Admin: 06/18/17 21:44 Dose: 30 mg Risperidone (Risperdal M-Tab) 1 mg PO DAILY TRISTIN Results - Vital Signs Recent Vital Signs: Last Vital Signs Temp 98.1 F 06/18/17 16:32 Pulse 110 H 06/18/17 16:32 Resp 20 06/18/17 16:32 BP 128/78 06/18/17 16:32 Pulse Ox 98 06/17/17 22:12 - Labs Result Diagrams: 06/17/17 14:40 06/17/17 14:40 Labs: Laboratory Results - last 24 hr 06/18/17 08:03 RPR Nonreactive Assessment & Plan - Assessment and Plan (Free Text) Plan: Patient seen and examined, agree with findings and plan as documented by the resident. Sinus tachycardia likely secondary to anxiety as Urine toxicology and thyroid panel normal with no signs of infection. Will continue to monitor.
[2017-06-20] MEDS ORDERED: Risperidone M tab 1 MG PO SCH (09:00)
[2017-06-20] MEDS: Risperidone M TAB 2 MG PO SCH ×2 (13:56→17:26)
--- NOTE | 2017-06-20 14:30 | PCM.PYCHPN ---
Psychiatric Progress Note - Psychiatric Progress Note Patient seen today, length of contact: pt evaluated discussed with team chart reviewed Patient Chief Complaint: I hear the voices telling me to jump off the window Problems Identified/Issues Discussed: pt seen in bed, dressed in a hospital gown, unkempt , isolative, pt reported continues to experience command auditory hallucinations making her anxious, reported the voices telling her she is worthless and she should end her life by jumping out of the window also feeling down and anhedonic, increased sleep and poor energy Medical Problems: multiple inpatient hospitalizations for psychotic symptoms DSM 5 Symptoms Update: schizoaffective disorder depressed Medication Change: Yes (increase oral risperidone) Medical Record Reviewed: Yes Mental Status Examination - Cognitive Function Orientation: Person, Place Memory: Intact Attention: Poor Concentration: Poor Association: WNL Fund of Knowledge: Poor - Mood Mood: Depressed, Anxious - Affect Affect: Constricted, Blunted - Speech Speech: Soft - Formal Thought Process Formal Thought Process: Delusions, Paranoia, Circumstantial - Suicidal Ideation Suicidal Ideation: No - Homicidal Ideation Homicidal Ideation: No Goal/Treatment Plan - Goal/Treatment Plan Need for Continued Stay: Severe depression anxiety, Discharge may exacerbated symptoms Progress Toward Problem(s) and Goals/Treatment Plan: increase oral risperidne to 2mg bid start thorazine 100mg q8 prn as pt is allergic to haldol continue risperidone consta 25mg im vistaril prn for anxiety, remeron 30mg qhs for depression 1:1 precautions for suicidal risk group and supportive therapy Estimated Date of D/C: 06/27/17
[2017-06-20] MEDS: guaiFENesin 200 mg/10 ml Syrup UD PO PRN (17:26)
[2017-06-21] MEDS: Risperidone M TAB 2 MG PO SCH ×2 (09:06→17:02)
--- NOTE | 2017-06-21 09:20 | PCM.PYCHPN ---
Psychiatric Progress Note - Psychiatric Progress Note Patient seen today, length of contact: Patient evaluated, case discussed with team, chart reviewed Patient Chief Complaint: "I'm hearing voices." Problems Identified/Issues Discussed: Patient continues to be disorganized and psychotic. She reports command auditory hallucinations telling her that she should " in my sleep or shave my head." She continues to need 1:1 for safety due to erratic behavior and acute psychosis. She reports that she currently feels depressed. Medication Change: No Medical Record Reviewed: Yes Consults ordered or reviewed: Medicine consult Mental Status Examination - Cognitive Function Orientation: Person, Place Memory: Intact Attention: Poor Concentration: Poor Association: WNL Fund of Knowledge: Poor Decription of patient's judgement and insights: Poor I/J - Mood Mood: Depressed - Affect Affect: Blunted - Speech Speech: Soft - Formal Thought Process Formal Thought Process: Hallucinations, Paranoia, Circumstantial Psychotic Thoughts and Behaviors: +CAH - Suicidal Ideation Suicidal Ideation: No - Homicidal Ideation Homicidal Ideation: No Goal/Treatment Plan - Goal/Treatment Plan Need for Continued Stay: Remain at risks for inpatient hospitalization, Severe depression anxiety, Discharge may exacerbated symptoms Progress Toward Problem(s) and Goals/Treatment Plan: Schizoaffective Disorder; patient needs continued hospitalization for treatment and safety -Individual and group therapy -Continue 1:1 for safety -Contiue Risperdal 2 mg PO BID -Continue Thorazine 100 mg q8 hr PRN as patient is allergic to Haldol -Continue Risperdone Consta 25 mg IM q2 weeks -Continue Remeron 30 mg PO HS -Continue Vistaril PRN anxiety k Estimated Date of D/C: 06/27/17
[2017-06-21] MEDS: guaiFENesin 200 mg/10 ml Syrup UD PO PRN (17:02)
[2017-06-22] MEDS ORDERED: Risperidone M TAB 2 MG PO SCH (09:15)
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
[2017-06-22 21:00] VITALS: O2SAT 100
[2017-06-22] MEDS: guaiFENesin 200 mg/10 ml Syrup UD PO PRN (21:03)
[2017-06-22] MEDS: Nasal Spray(Ocean spray) NAS PRN (21:03)
[2017-06-23] MEDS: Nasal Spray(Ocean spray) NAS PRN ×2 (07:48→14:36)
[2017-06-23] MEDS: guaiFENesin 200 mg/10 ml Syrup UD PO PRN (07:48)
[2017-06-23] MEDS ORDERED: OLANZapine 5 mg Disintegrating Tab PO PRN (08:58)
[2017-06-23] MEDS ORDERED: OLANZapine 5 mg Disintegrating Tab PO SCH (09:00)
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
[2017-06-23] MEDS: Risperidone M TAB 2 MG PO SCH (11:36)
[2017-06-23] MEDS: OLANZapine 5 mg Disintegrating Tab PO SCH ×2 (11:36→18:03)
[2017-06-23] MEDS ORDERED: White Petroleum Jar TP PRN (14:30)
[2017-06-23] MEDS ORDERED: Petrolatum UD PAK TOP PRN (15:30)
[2017-06-23] MEDS ORDERED: Risperidone M TAB 2 MG PO SCH (22:00)
[2017-06-24] MEDS: Risperidone M TAB 2 MG PO SCH (09:08)
[2017-06-24] MEDS: OLANZapine 5 mg Disintegrating Tab PO SCH ×3 (09:09→17:24)
[2017-06-24] MEDS: guaiFENesin 200 mg/10 ml Syrup UD PO PRN (10:32)
--- NOTE | 2017-06-24 16:36 | PCM.PYCHPN ---
Psychiatric Progress Note - Psychiatric Progress Note Patient seen today, length of contact: Patient evaluated, case discussed with team, chart reviewed Patient Chief Complaint: The voices are less today but they tell me I should not be alive Problems Identified/Issues Discussed: pt on evaluation appears calmer and less distressed, continues to experience command hallucinations however reported that they have dampened pt appears less depressed, better communication attending groups, less paranoid Medical Problems: multiple inpatient hospitalizations for psychotic symptoms DSM 5 Symptoms Update: schizophrenia paranoid type Medication Change: Yes (increase zyprexa) Medical Record Reviewed: Yes Mental Status Examination - Cognitive Function Orientation: Person, Place Memory: Intact Attention: Poor Concentration: Poor Association: WNL Fund of Knowledge: Poor - Mood Mood: Depressed - Affect Affect: Blunted - Speech Speech: Soft - Formal Thought Process Formal Thought Process: Hallucinations, Delusions, Paranoia, Circumstantial Psychotic Thoughts and Behaviors: pt presenting with command auditory hallucinations telling her to hurt herself and putting her down - Suicidal Ideation Suicidal Ideation: Yes - Homicidal Ideation Homicidal Ideation: No Goal/Treatment Plan - Goal/Treatment Plan Need for Continued Stay: Remain at risks for inpatient hospitalization, Severe depression anxiety, Discharge may exacerbated symptoms Progress Toward Problem(s) and Goals/Treatment Plan: increase zyprexa to 5mg tid downtitrate risperidone and discontinue gradually continue 1:1observation for command hallucinations and suicide risk decrease remeron gradually group and supportive therapy Estimated Date of D/C: 06/27/17
[2017-06-24] MEDS: Nasal Spray(Ocean spray) NAS PRN (17:25)
[2017-06-24] MEDS ORDERED: Risperidone M tab 1 MG PO SCH (22:00)
[2017-06-25] MEDS: OLANZapine 5 mg Disintegrating Tab PO SCH ×3 (08:57→21:11)
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
[2017-06-26] MEDS: OLANZapine 5 mg Disintegrating Tab PO SCH ×3 (09:30→21:08)
--- NOTE | 2017-06-26 11:19 | PCM.PYCHPN ---
Psychiatric Progress Note - Psychiatric Progress Note Patient seen today, length of contact: Patient evaluated, case discussed with team, chart reviewed Patient Chief Complaint: The voices are whispering now they are less and they tell me to stop being shy Problems Identified/Issues Discussed: pt on evaluation appears less distressed, reported feeling better on current medications and the voices now are 3/10 only whispering but still putting her down encouraged pt to attend groups appears less depressed, reported better mood with brighter affect, denied any homicidal thoughts however, continues to feel controlled by the auditory hallucinations despite they are damper no reported side effects of zyprexa Medical Problems: multiple inpatient hospitalizations for psychotic symptoms DSM 5 Symptoms Update: schizophrenia paranoid type Medication Change: Yes (decrease remeron and start effexor) Medical Record Reviewed: Yes Mental Status Examination - Cognitive Function Orientation: Person, Place Memory: Intact Attention: Poor Concentration: Poor Association: WNL Fund of Knowledge: Poor - Mood Mood: Depressed - Affect Affect: Blunted - Speech Speech: Soft - Formal Thought Process Formal Thought Process: Hallucinations, Delusions, Paranoia, Circumstantial Psychotic Thoughts and Behaviors: pt presenting with command auditory hallucinations telling her to hurt herself and putting her down and having paranoid delusions that people around her want to hurt her - Suicidal Ideation Suicidal Ideation: Yes - Homicidal Ideation Homicidal Ideation: No Goal/Treatment Plan - Goal/Treatment Plan Need for Continued Stay: Remain at risks for inpatient hospitalization, Severe depression anxiety, Discharge may exacerbated symptoms Progress Toward Problem(s) and Goals/Treatment Plan: pt continues to have command auditory hallucinations continue 1:1observation for suicide risk decrease remeron gradually, continue zyprexa 17.5 mg, start effexor 37.5 mg and uptitrate gradually will monitor pt for psychopharmacological effects and side effect profile if limited response to zyprexa will consider starting clozaril group and supportive therapy Estimated Date of D/C: 07/04/17
[2017-06-26] MEDS: guaiFENesin 200 mg/10 ml Syrup UD PO PRN (11:57)
[2017-06-26] MEDS: Venlafaxine 37.5 mg ER Cap PO SCH (12:26)
[2017-06-27] MEDS: OLANZapine 5 mg Disintegrating Tab PO SCH ×3 (09:02→21:18)
[2017-06-27] MEDS: Venlafaxine 37.5 mg ER Cap PO SCH (09:03)
--- NOTE | 2017-06-27 11:32 | PCM.PYCHPN ---
Psychiatric Progress Note - Psychiatric Progress Note Patient seen today, length of contact: Patient evaluated, case discussed with team, chart reviewed Patient Chief Complaint: The voices are only whispering, they are very low, they do not want me to hurt myself any more Problems Identified/Issues Discussed: pt on evaluation in treatment team more kempt and better groomed , presenting with brighter affect and reported mood is better and less depressed pt rated the auditory hallucinations today to be 1/10 and that they are just far away whispers and non command in nature stated feeling motivated to attend groups and to get better so she can go home denied any current suicidal or homicidal ideations denied command hallucinations no reported side effects of medications Medical Problems: multiple inpatient hospitalizations for psychotic symptoms DSM 5 Symptoms Update: schizophrenia Medication Change: Yes (decrease remeron ) Medical Record Reviewed: Yes Mental Status Examination - Cognitive Function Orientation: Person, Place Memory: Intact Attention: WNL Concentration: Poor Association: WNL Fund of Knowledge: Poor - Mood Mood: Anxious, Neutral - Affect Affect: Constricted - Speech Speech: Soft - Formal Thought Process Formal Thought Process: Hallucinations, Delusions, Paranoia, Circumstantial Psychotic Thoughts and Behaviors: pt presenting today with non command whispering low auditory hallucinations - Suicidal Ideation Suicidal Ideation: No - Homicidal Ideation Homicidal Ideation: No Goal/Treatment Plan - Goal/Treatment Plan Need for Continued Stay: Remain at risks for inpatient hospitalization, Severe depression anxiety, Discharge may exacerbated symptoms Progress Toward Problem(s) and Goals/Treatment Plan: discontinue 1:1observation as pt at current mental status denied any command hallucinations denied any suicidal or homicidal ideations decrease remeron gradually, continue zyprexa 17.5 mg, and effexor 37.5 mg and uptitrate gradually will monitor pt for psychopharmacological effects and side effect profile CBT group and supportive therapy Estimated Date of D/C: 07/04/17
--- NOTE | 2017-06-27 16:00 | PCM.BM ---
<Ernesto Gutiérrez - Last Filed: 06/27/17 15:57> Treatment Plan Problems - Problems identified on initial assessmt Delusions Date Initiated: 06/18/17 Time Initiated: 02:09 Assessment reference: NA Status: Active Auditory Hallucinations Date Initiated: 06/18/17 Time Initiated: 02:09 Assessment reference: NA Status: Active Treatment assets and liabiliti Patient Assests: adapts well, cooperative, ADL independent, physically healthy, good support system, negotiates basic needs Patient Liabilities: poor support system - Milieu Protocol Maintain good personal hygiene: daily Encourage regular showers, every shift Remind patient to perform daily oral care Maintain personal safety: every shift Educate patient to report safety concerns to staff, every shift Monitor environment for contraband/sharps Medication safety: Monitor for expected outcome, potential side effects: every shift, Assess barriers to learning: every shift, Assess readiness for medication education: every shift Milieu Narrative: discontinue 1:1observation as pt at current mental status denied any command hallucinations denied any suicidal or homicidal ideations decrease remeron gradually, continue zyprexa 17.5 mg, and effexor 37.5 mg and uptitrate gradually will monitor pt for psychopharmacological effects and side effect profile CBT group and supportive therapy Family Contact Family involvement: Family/SO is involved Family contact: Patient agrees to contact, Family has been contacted by patient , Telephone contact initiated by staff Family contact name: Nate()([phone]) Family contacted how many times per week?: 2 Family contact comment: Inside Sales Account Manager placed call to patients aunt (Nate [phone] ) to discuss precursors to hospitalization and progress on 3NP. Patients aunt reports that she checks in with patient frequently but has been unable to visit recently due to having to care for patients grandmother. Patients aunt reports that patient used to reside with her but started to get threatening towards her children and had to find alternate housing. Nate expressed concerns regarding possibility of patient harming herself or others while decompensated. As per patients aunt patient has hx of being inconsistently compliant with medications. Nate requested psychoeducation regarding mental illness and medication management. Psychoeducation provided. Inside Sales Account Manager emphasized importance of compliance with aftercare to reduce risk of future hospitalizations and improve functioning in the community. Inside Sales Account Manager notified Nate that patient will be placed on a 1:1 on 3NP secondary to inabiliy to contract for saftey at present time. Patients aunt expressed understanding of the above. Inside Sales Account Manager provided unit payphones and visitation hours. Inside Sales Account Manager to continue providing clinical updates through-out patients hospitalization. - Outside Agency Agency 1 Care involvment: Following patient during stay, Other Agency contact name: [facility] Agency contact number: [phone] Agency 2 Care involvment: Following patient during stay, Other Agency contact name: [facility] Agency contact number: [phone] - Goals for Treatment Patient goals for treatment: Patient to continue stabilization on 3NP through medication management and group/supportive therapy. Patient to be encouraged to attend groups regularly to promote self-awareness, compliance, and improve insight, coping skills and self-esteem. Patient to be provided with referral for appropriate level of aftercare to reduce risk of future hospitalizations and ensure safety in the community. Discharge/Continuing Care - Education Needs Education Needs: Family Medication, Family Coping Skills, Family Community resources, Family Aftercare Safety Plan, Patient Medication, Patient Coping Skills, Patient Community resources, Patient Aftercare Safety Plan - Discharge Discharge Criteria: Tolerates medication w/o severe side effects, Free of Suicidal thoughts, Free of Homicidal thoughts, Free of paranoid thoughts, Free of agitation, Normal sleep pattern, Ability to care for self, Reduction of target symptoms Discharge to:: Home, Other - Treatment Team Participation Patient/Family/SO Statement: discontinue 1:1observation as pt at current mental status denied any command hallucinations denied any suicidal or homicidal ideations decrease remeron gradually, continue zyprexa 17.5 mg, and effexor 37.5 mg and uptitrate gradually will monitor pt for psychopharmacological effects and side effect profile CBT group and supportive therapy Treatment Plan Review - Problem Delusions Date Initiated: 06/27/17 Time Initiated: 02:09 Progress toward outcomes: improved Auditory Hallucinations Date Initiated: 06/27/17 Time Initiated: 02:09 Progress toward outcomes: improved - Discharge / Continuing Care Discharge to:: [facility]: Partial hospital (Pt reported that the auditory hallucinations are decreased and she is able to contatract for safety. Pt brought up discharge and discussion to PHP was had and pt is agreeable to attend [facility] PHP if they are willing to accept her again.) <Abby Garibay A - Last Filed: 06/28/17 11:21> - Diagnosis (1) Schizoaffective disorder Status: Acute Interventions: psychotherapy pharmacotherapy 06/28/17 11:21
[2017-06-28] MEDS: Venlafaxine 37.5 mg ER Cap PO SCH (09:39)
[2017-06-28] MEDS: OLANZapine 5 mg Disintegrating Tab PO SCH ×3 (09:42→21:09)
--- NOTE | 2017-06-28 11:26 | PCM.PYCHPN ---
Psychiatric Progress Note - Psychiatric Progress Note Patient seen today, length of contact: Patient evaluated, case discussed with team, chart reviewed Patient Chief Complaint: I feel better today, the voices are very low and I can stop them Problems Identified/Issues Discussed: pt on evaluation icalmer, cooperative, better eye contact , presenting with brighter affect and reported mood is better and less depressed pt rated the auditory hallucinations today to be 1/10 and that they are just far away whispers and non command in nature denied any current suicidal or homicidal ideations denied command hallucinations no reported side effects of medications Medical Problems: multiple inpatient hospitalizations for psychotic symptoms DSM 5 Symptoms Update: schizoaffective disorder depressed Medication Change: Yes (stop remeron increase zyprexa) Medical Record Reviewed: Yes Mental Status Examination - Cognitive Function Orientation: Person, Place Memory: Intact Attention: WNL Concentration: Poor Association: WNL Fund of Knowledge: Poor - Mood Mood: Anxious, Neutral - Affect Affect: Constricted - Speech Speech: Soft - Formal Thought Process Formal Thought Process: Hallucinations, Delusions, Paranoia, Circumstantial Psychotic Thoughts and Behaviors: pt presenting today with non command whispering low auditory hallucinations - Suicidal Ideation Suicidal Ideation: No - Homicidal Ideation Homicidal Ideation: No Goal/Treatment Plan - Goal/Treatment Plan Need for Continued Stay: Remain at risks for inpatient hospitalization, Severe depression anxiety, Discharge may exacerbated symptoms Progress Toward Problem(s) and Goals/Treatment Plan: pt at current mental status denied any command hallucinations denied any suicidal or homicidal ideations discontinue remeron and increase effexor to 75 mg ,increase zyprexa to 20 mg , will monitor pt for psychopharmacological effects and side effect profile CBT group and supportive therapy Estimated Date of D/C: 07/04/17
[2017-06-29] MEDS: OLANZapine 5 mg Disintegrating Tab PO SCH ×2 (08:42→21:31)
[2017-06-29] MEDS: Venlafaxine 75 mg ER Cap PO SCH (08:42)
--- NOTE | 2017-06-29 10:36 | PCM.PYCHPN ---
Psychiatric Progress Note - Psychiatric Progress Note Patient seen today, length of contact: Patient evaluated, case discussed with team, chart reviewed Patient Chief Complaint: I feel better today, I wish I could go home ,the voices are very low and I can stop them Problems Identified/Issues Discussed: pt on evaluation calmer, cooperative, better eye contact , speech more productive and more goal directed presenting with brighter affect and reported mood is better and less depressed pt rated the auditory hallucinations today to be 1/10 and that they are just far away whispers and non command in nature denied any current suicidal or homicidal ideations denied command hallucinations no reported side effects of medications Medical Problems: multiple inpatient hospitalizations for psychotic symptoms DSM 5 Symptoms Update: schizophrenia Medication Change: No Medical Record Reviewed: Yes Mental Status Examination - Cognitive Function Orientation: Person, Place Memory: Intact Attention: WNL Concentration: Poor Association: WNL Fund of Knowledge: Poor - Mood Mood: Anxious, Neutral - Affect Affect: Constricted - Speech Speech: Soft - Formal Thought Process Formal Thought Process: Hallucinations, Delusions, Paranoia, Circumstantial Psychotic Thoughts and Behaviors: pt presenting today with non command whispering low auditory hallucinations - Suicidal Ideation Suicidal Ideation: No - Homicidal Ideation Homicidal Ideation: No Goal/Treatment Plan - Goal/Treatment Plan Need for Continued Stay: Remain at risks for inpatient hospitalization, Severe depression anxiety, Discharge may exacerbated symptoms Progress Toward Problem(s) and Goals/Treatment Plan: pt at current mental status denied any command hallucinations denied any suicidal or homicidal ideations continue with effexor 75 mg ,increase zyprexa to 20 mg, will monitor pt for psychopharmacological effects and side effect profile CBT group and supportive therapy Estimated Date of D/C: 07/04/17
--- NOTE | 2017-06-30 10:17 | PCM.PYCHPN ---
Psychiatric Progress Note - Psychiatric Progress Note Patient seen today, length of contact: Patient evaluated, case discussed with team, chart reviewed Patient Chief Complaint: I feel better I washed my hair and watched TV Problems Identified/Issues Discussed: pt on evaluation calmer, cooperative, better eye contact , speech more productive and more goal directed , Interacting with other peers presenting with brighter affect and reported mood is better and less depressed pt rated the auditory hallucinations today to be 1/10 and that they are just far away whispers and non command in nature, pt able to ignore them denied any current suicidal or homicidal ideations denied command hallucinations no reported side effects of medications Medical Problems: multiple inpatient hospitalizations for psychotic symptoms DSM 5 Symptoms Update: schizophrenia Medication Change: No Medical Record Reviewed: Yes Mental Status Examination - Cognitive Function Orientation: Person, Place Memory: Intact Attention: WNL Concentration: Poor Association: WNL Fund of Knowledge: Poor - Mood Mood: Anxious, Neutral - Affect Affect: Constricted - Speech Speech: Soft - Formal Thought Process Formal Thought Process: Hallucinations, Circumstantial Psychotic Thoughts and Behaviors: pt presenting today with non command whispering low auditory hallucinations - Suicidal Ideation Suicidal Ideation: No - Homicidal Ideation Homicidal Ideation: No Goal/Treatment Plan - Goal/Treatment Plan Need for Continued Stay: Remain at risks for inpatient hospitalization, Severe depression anxiety, Discharge may exacerbated symptoms Progress Toward Problem(s) and Goals/Treatment Plan: pt at current mental status denied any command hallucinations denied any suicidal or homicidal ideations continue with effexor 75 mg ,and zyprexa 20 mg, will monitor pt for psychopharmacological effects and side effect profile CBT group and supportive therapy Estimated Date of D/C: 07/04/17
[2017-06-30] MEDS: Venlafaxine 75 mg ER Cap PO SCH (10:27)
[2017-06-30] MEDS: OLANZapine 5 mg Disintegrating Tab PO SCH ×4 (10:27→21:32)
[2017-07-01] MEDS: Venlafaxine 75 mg ER Cap PO SCH (09:33)
[2017-07-01] MEDS: OLANZapine 5 mg Disintegrating Tab PO SCH ×3 (09:33→21:06)
--- NOTE | 2017-07-01 13:07 | PCM.PYCHPN ---
Psychiatric Progress Note - Psychiatric Progress Note Patient seen today, length of contact: Patient evaluated, case discussed with team, chart reviewed Patient Chief Complaint: I am alright I want to stay with my grandmother when I leave Problems Identified/Issues Discussed: pt on evaluation more interactive and presenting with better mood and brighter affect, continues to have faint non command auditory hallucinations, poosible reaching base line no reported changes in sleep or appetite denied suicidal or homicidal ideations , no reported side effects of medications Medical Problems: multiple inpatient hospitalizations for psychotic symptoms DSM 5 Symptoms Update: schizophrenia Medication Change: No Medical Record Reviewed: Yes Mental Status Examination - Cognitive Function Orientation: Person, Place Memory: Intact Attention: WNL Concentration: WNL Association: WNL Fund of Knowledge: Poor Decription of patient's judgement and insights: partial insight and poor judgement - Mood Mood: Neutral - Affect Affect: Constricted - Speech Speech: Soft - Formal Thought Process Formal Thought Process: Hallucinations, Circumstantial Psychotic Thoughts and Behaviors: pt presenting today with non command whispering low auditory hallucinations - Suicidal Ideation Suicidal Ideation: No - Homicidal Ideation Homicidal Ideation: No Goal/Treatment Plan - Goal/Treatment Plan Need for Continued Stay: Remain at risks for inpatient hospitalization, Severe depression anxiety, Discharge may exacerbated symptoms Progress Toward Problem(s) and Goals/Treatment Plan: pt at current mental status denied any command hallucinations denied any suicidal or homicidal ideations continue with effexor 75 mg ,and zyprexa 20 mg, will monitor pt for psychopharmacological effects and side effect profile manager social media to arrange for after care plan as pt agreed to start joining partial program at [facility] CBT group and supportive therapy Estimated Date of D/C: 07/04/17
[2017-07-02] MEDS: OLANZapine 5 mg Disintegrating Tab PO SCH ×3 (08:42→21:10)
[2017-07-02 09:14] VITALS: TEMP 98.1
[2017-07-02] MEDS: Venlafaxine 75 mg ER Cap PO SCH (10:10)
--- NOTE | 2017-07-02 13:08 | PCM.PYCHPN ---
Psychiatric Progress Note - Psychiatric Progress Note Patient seen today, length of contact: Patient evaluated, case discussed with team, chart reviewed Patient Chief Complaint: I feel better , ready to leave Problems Identified/Issues Discussed: pt on evaluation reported better mood, brighter affect less isolative, reported clearing off of the auditory hallucinations, denied side effects of the medications no reported changes in sleep or appetite denied suicidal or homicidal ideations Medical Problems: multiple inpatient hospitalizations for psychotic symptoms DSM 5 Symptoms Update: schizophrenia Medication Change: No Medical Record Reviewed: Yes Mental Status Examination - Cognitive Function Orientation: Person, Place Memory: Intact Attention: WNL Concentration: WNL Association: WNL Fund of Knowledge: Poor Decription of patient's judgement and insights: partial insight and poor judgement - Mood Mood: Neutral - Affect Affect: Constricted - Speech Speech: Soft - Formal Thought Process Formal Thought Process: Hallucinations, Circumstantial Psychotic Thoughts and Behaviors: pt reported clearing off of the auditory hallucinations - Suicidal Ideation Suicidal Ideation: No - Homicidal Ideation Homicidal Ideation: No Goal/Treatment Plan - Goal/Treatment Plan Need for Continued Stay: Remain at risks for inpatient hospitalization, Severe depression anxiety, Discharge may exacerbated symptoms Progress Toward Problem(s) and Goals/Treatment Plan: pt at current mental status denied any command hallucinations denied any suicidal or homicidal ideations continue with effexor 75 mg ,and zyprexa 20 mg, will monitor pt for psychopharmacological effects and side effect profile adoption social worker to arrange for after care plan as pt agreed to start joining partial program at [facility] CBT group and supportive therapy Estimated Date of D/C: 07/04/17
[2017-07-03] MEDS: Venlafaxine 75 mg ER Cap PO SCH (09:15)
[2017-07-03] MEDS: OLANZapine 5 mg Disintegrating Tab PO SCH ×3 (09:15→21:07)
--- NOTE | 2017-07-03 12:22 | PCM.PYCHPN ---
Psychiatric Progress Note - Psychiatric Progress Note Patient seen today, length of contact: Patient evaluated, case discussed with team, chart reviewed Patient Chief Complaint: I am good and I am ignoring the voices Problems Identified/Issues Discussed: pt on evaluation. calm , cooperative brighter mood and affect, baseline whispering non command auditory hallucinations, attending groups, denied side effects of medications denied suicidal or homicidal ideations Medical Problems: multiple inpatient hospitalizations for psychotic symptoms DSM 5 Symptoms Update: schizophrenia Medication Change: No Medical Record Reviewed: Yes Mental Status Examination - Cognitive Function Orientation: Person, Place Memory: Intact Attention: WNL Concentration: WNL Association: WNL Fund of Knowledge: Poor Decription of patient's judgement and insights: partial insight and poor judgement - Mood Mood: Neutral - Affect Affect: Constricted - Speech Speech: Soft - Formal Thought Process Formal Thought Process: Hallucinations, Circumstantial Psychotic Thoughts and Behaviors: pt reported clearing off of the auditory hallucinations - Suicidal Ideation Suicidal Ideation: No - Homicidal Ideation Homicidal Ideation: No Goal/Treatment Plan - Goal/Treatment Plan Need for Continued Stay: Remain at risks for inpatient hospitalization, Severe depression anxiety, Discharge may exacerbated symptoms Progress Toward Problem(s) and Goals/Treatment Plan: pt at current mental status denied any command hallucinations denied any suicidal or homicidal ideations continue with effexor 75 mg ,and zyprexa 20 mg, follow up arranged with outpatient program at [facility] CBT group and supportive therapy PT TO BE discharged tomorrow with PACT senior case manager Estimated Date of D/C: 07/04/17
[2017-07-03 17:47] VITALS: BP 133/90; PULSE 76; RESP 18
[2017-07-04] MEDS: OLANZapine 5 mg Disintegrating Tab PO SCH (09:30)
[2017-07-04] MEDS: Venlafaxine 75 mg ER Cap PO SCH (09:30)
--- NOTE | 2017-07-04 13:59 | PCM.PYCHDC ---
Mental Status Examination - Mental Status Examination Orientation: Person, Place, Situation Memory: Intact Mood: Neutral Affect: Broad Speech: Appropriate Attention: WNL Concentration: WNL Association: WNL Fund of Knowledge: WNL Formal Thought Process: Circumstantial Description of patient's judgement and insight: partial insight and poor judgement Psychotic Thoughts and Behaviors: pt denied any current command hallucinations denied any psychotic symptoms, non elicited Suicidal Ideation: No Current Homicidal Ideation?: No Discharge Summary - Discharge Note Reason for Hospitalization: pt. is a 26 year old AA single female previous diagnosis of schizoaffective disorder, discharged few days ago from [facility]. Pt. reported coming to ER because her worker told her to come here. Pt. reported being paranoid, having thoughts of being followed and persecutted from people who worked with her because they believe she killed her mother. Pt. is fearful she would hurt herself due to these intruding thoughts. Pt. also reported non command auditory hallucinations making her anxious, pt requested admission for medication stabilization Consultations:: List each consultation separately and include: 1. Reason for request. 2. Findings. 3. Follow-up Summary of Hospital Course include:: 1. Description of specific treatment plan utilized for patients during their course of treatmen. 2. Summarize the time- course for resolution of acute symptoms and/or regressed behaviors. 3. Describe issues identified and worked on during hospitalization. 4. Describe medication utilized. 5. Describe medical problems identified and treated. 6. Reassessment of suicide risk Summary of Hospital Course: pt. on admission was started on risperidone and it was uptitrated, pt had poor response to risperidone and started experiencing command auditory hallucinations , to hurt herself, pt had to be placed on 1;1 observation for suicide risk and risperidone was cross titrated with zyprexa zyprexa was uptitrated gradually to 20mg pt gradually reported clearing off of the auditory hallucinations and presented with brighter mood and affect mental status on discharge pt denied any current suicidal or homicidal ideations denied perceptual disturbances denied any current command hallucinations denied any current psychotic symptoms at current mental ststus pt not danger to self or others follow up at [facility] out patient - Diagnosis (1) Schizoaffective disorder Current Visit: Yes Status: Acute - Final Diagnosis (DSM 5) Condition upon Discharge: STABLE Disposition: HOME/ ROUTINE Follow-up Treatment Plan: pt at current mental status denied any command hallucinations denied any suicidal or homicidal ideations continue with effexor 75 mg ,and zyprexa 20 mg, follow up arranged with outpatient program at [facility] CBT group and supportive therapy PT TO BE discharged tomorrow with PACT block and case maker Prescriptions/Medication Reconciliation: Benztropine [Cogentin] 0.5 mg PO BID 30 Days #60 tab Gabapentin [Neurontin] 100 mg PO TID 30 Days #90 cap hydrOXYzine Pamoate [Vistaril] 25 mg PO TID PRN 30 Days #90 cap PRN Reason: Anxiety OLANZapine [Zyprexa Zydis] 10 mg PO HS 30 Days #30 odt OLANZapine [Zyprexa Zydis] 5 mg PO BID 30 Days #60 odt Petrolatum [Vaseline Oint] 1 pkt TOP Q8 PRN 7 Days #1 fp PRN Reason: Dry Skin Venlafaxine [Effexor XR] 75 mg PO DAILY 30 Days #30 cer - Antipsychotic Medications Pt discharged on 2 or more routine antipsychotic medications: No
== END 2017-07-04 15:04 | disposition home or self-care (01) | DRG 430 ==
LOC: H.ER 12:39 → H.ERHOLD 18:30 → H.PSYCH 22:51
PROVIDERS: ADMIT Psychiatry & Neurology Psychiatry; ATTEND Psychiatry & Neurology Psychiatry
PROC: GZHZZZZ Group Psychotherapy (ICD-10-PCS; principal; 2017-06-17)
PROC: GZ58ZZZ Individual Psychotherapy, Cognitive-Behavioral (ICD-10-PCS; 2017-06-17)
PROC: GZ56ZZZ Individual Psychotherapy, Supportive (ICD-10-PCS; 2017-06-17)
DX: F25.9 Schizoaffective disorder, unspecified (principal); R45.851 Suicidal ideations; F32.9 Major depressive disorder, single episode, unspecified; R00.0 Tachycardia, unspecified; F41.9 Anxiety disorder, unspecified

== ENCOUNTER 2017-07-11 10:55 | Inpatient (IN) | payer MEDICAID, OTHER ==
[2017-07-11 11:20] VITALS: O2SAT 100
--- NOTE | 2017-07-11 11:33 | ED PDOC ---
HPI: Psych/Substance Abuse Time Seen by Provider: 07/11/17 11:15 Chief Complaint (Nursing): Psychiatric Evaluation Chief Complaint (Provider): psych History Per: Patient (26 y/o female h/o schizoaffective disorder recently discharged 07/04/2017 states she has persistent auditory hallucinations. States hallucinations are telling her she needs to so that certain institutions can be sued. Patient feels she has no one to talk to at home as everyone else is preoccupied with problem. Would like medications adjusted.) Past Medical History Reviewed: Historical Data, Nursing Documentation, Vital Signs Vital Signs: Last Vital Signs Temp 98.2 F 07/11/17 11:18 Pulse 102 H 07/11/17 11:18 Resp 20 07/11/17 11:18 BP 132/80 07/11/17 11:18 Pulse Ox 100 07/11/17 11:18 - Medical History PMH: Anemia, Anxiety, Bipolar Disorder, Bronchitis, Depression, Schizophrenia Denies: Diabetes, Hepatitis, HIV, HTN, Chronic Kidney Disease, Seizures, Sexually Transmitted Disease - Family History Family History: States: Unknown Family Hx - Immunization History Hx Influenza Vaccination: No - Home Medications Home Medications: Ambulatory Orders Medication Instructions Recorded Benztropine [Cogentin] 0.5 mg PO BID 07/11/17 Gabapentin [Neurontin] 100 mg PO TID 07/11/17 OLANZapine [Zyprexa Zydis] 10 mg PO BID 07/11/17 hydrOXYzine Pamoate [Vistaril] 25 mg PO TID PRN 07/11/17 - Allergies Allergies/Adverse Reactions: Allergies Allergy/AdvReac Type Severity Reaction Status Date / Time haloperidol [From Haldol] Allergy ANGIOEDEMA Verified 06/17/17 13:23 Review of Systems ROS Statement: Except As Marked, All Systems Reviewed And Found Negative Physical Exam - Reviewed Nursing Documentation Reviewed: Yes Vital Signs Reviewed: Yes - Physical Exam Appears: Positive for: Well, Non-toxic, No Acute Distress Head Exam: Positive for: ATRAUMATIC, NORMAL INSPECTION, NORMOCEPHALIC Skin: Positive for: Normal Color, Warm, DRY Eye Exam: Positive for: EOMI, Normal appearance, PERRL ENT: Positive for: Normal ENT Inspection Neck: Positive for: Normal, Painless ROM Cardiovascular/Chest: Positive for: Regular Rate, Rhythm Respiratory: Positive for: CNT, Normal Breath Sounds Gastrointestinal/Abdominal: Positive for: Normal Exam, Bowel Sounds, Soft Back: Positive for: Normal Inspection Extremity: Positive for: Normal ROM Neurologic/Psych: Positive for: Alert, Oriented - Laboratory Results Result Diagrams: 07/11/17 12:10 07/11/17 12:10 - ECG O2 Sat by Pulse Oximetry: 100 - Progress ED Course And Treament: seen by crisis admit to [facility] diagnosis schizophrenia Disposition - Clinical Impression Clinical Impression: Schizophrenia - Patient ED Disposition Is Patient to be Admitted: Yes - Disposition Disposition Time: 12:39 Condition: FAIR - Pt Status Changed To: Hospital Disposition Of: Inpatient - Admit Certification Admit to Inpatient:: After my assessment, the patient will require hospitalization for at least two midnights. This is because of the severity of symptoms shown, intensity of services needed, and/or the medical risk in this patient being treated as an outpatient.
[2017-07-11 11:57] LABS: BARBITURATES, UR NEGATIVE (NEGATIVE); BENZODIAZEPINES, UR NEGATIVE (NEGATIVE); OPIATES, UR NEGATIVE (NEGATIVE)
[2017-07-11 12:00] LABS: SQUAMOUS EPITHIAL 13 /hpf (0-5); URINE BACTERIA RARE (<OCC); URINE BILIRUBIN NEGATIVE (NEGATIVE); URINE BLOOD NEGATIVE (NEGATIVE); URINE CLARITY CLOUDY (Clear); URINE COLOR YELLOW (YELLOW); URINE GLUCOSE (UA) NEG (Normal); URINE LEUKOCYTE ESTERASE NEG Leu/uL (Negative); URINE NITRATE NEGATIVE (NEGATIVE); URINE PROTEIN NEGATIVE (NEGATIVE)
[2017-07-11 12:02] LABS: PHENCYCLIDINE, UR NEGATIVE (NEGATIVE)
[2017-07-11 12:27] LABS: BASO # 0.1 K/uL (0.0-0.2); EOS # 0.1 K/uL (0.0-0.7); EOS % 0.8 % (0.0-4.0); HEMOGLOBIN 11.8 g/dL (12.0-16.0); LYMPH % 27.9 % (20.0-40.0); MEAN CELL VOLUME 91.6 fl (81.0-99.0); MEAN CORPUSCULAR HEMOGLOBIN 29.6 pg (27.0-31.0); MEAN CORPUSCULAR HGB CONC 32.4 g/dL (33.0-37.0); MEAN PLATELET VOLUME 9.3 fl (7.2-11.7); MONO # 0.7 K/uL (0.0-0.8); MONO % 9.2 % (0.0-10.0); NEUT # 4.5 K/uL (1.8-7.0); NEUT % 61.1 % (50.0-75.0); NRBC % 0.2 % (0.0-0.0); RBC 3.97 Mil/uL (3.80-5.20); WHITE BLOOD COUNT 7.3 K/uL (4.8-10.8)
[2017-07-11 12:41] LABS: ALB/GLOB RATIO 1.1 (1.0-2.1); ALT/SGPT 30 U/L (9-52); AST/SGOT 19 U/L (14-36); BLOOD UREA NITROGEN 7 mg/dl (7-17); CALCIUM 8.9 mg/dL (8.4-10.2); GFR AFRICAN-AMERICAN > 60; GFR NON-AFRICAN AMERICAN > 60
--- NOTE | 2017-07-11 14:57 | PCM.BM ---
<Yenifer Bates - Last Filed: 07/11/17 14:54> Treatment Plan Problems - Problems identified on initial assessmt Auditory Hallucinations Date Initiated: 07/11/17 Time Initiated: 14:54 Assessment reference: NA Status: Active Treatment assets and liabiliti Patient Assests: adapts well, cooperative, ADL independent, physically healthy, good support system, negotiates basic needs Patient Liabilities: live alone, financial problems, poor support system - Milieu Protocol Maintain good personal hygiene: daily Encourage regular showers, daily Remind patient to perform daily oral care, daily Assist patient to perform ADL's Conduct patient checks and document Observation sheet: Q15 minutes Maintain personal safety: every shift Educate patient to report safety concerns to staff, every shift Monitor environment for contraband/sharps Medication safety: Monitor for expected outcome, potential side effects: every shift, Assess barriers to learning: every shift, Assess readiness for medication education: every shift <Maru Rivas - Last Filed: 07/16/17 14:08> Treatment assets and liabiliti Patient Assests: adapts well, cooperative, ADL independent, physically healthy, good support system, negotiates basic needs Patient Liabilities: live alone, financial problems, poor support system, other (possible cognitive delays) Family Contact Family involvement: Famliy/SO not involved (patients aunt limitedly involved) Family contact name: Nate (aunt) ([phone]) Family contacted how many times per week?: 2 - Outside Agency Agency 1 Care involvment: Other (patient is in transition from [facility]) Agency contact name: [facility] Agency contact number: [phone] Agency 2 Care involvment: Following patient during stay, Other (patient recently completed intake with Dr. Sauer and is scheduled to begin PHP in the upcoming weeks) Agency contact name: [facility] Agency contact number: [phone] - Goals for Treatment Patient goals for treatment: Patient to continue stabilization on 3NP through medication management and group/supportive therapy. Patient to be encouraged to attend groups regularly to promote self-awareness, compliance, and improve insight, coping skills, social skills and self-esteem. Patient to be provided with referral for appropriate level of aftercare to reduce risk of future hospitalizations and ensure safety in the community. Discharge/Continuing Care - Education Needs Education Needs: Patient Medication, Patient Coping Skills, Patient Community resources, Patient Aftercare Safety Plan - Discharge Discharge Criteria: Tolerates medication w/o severe side effects, Free of Suicidal thoughts, Free of paranoid thoughts, Free of agitation, Normal sleep pattern, Ability to care for self, Reduction of target symptoms Discharge to:: Home, Other ([facility] ) - Treatment Team Participation Patient/Family/SO Statement: 07/16/17 14:08 Patient attended tx team this morning to discuss progress on 3NP. Patient continues to report auditory hallucinations (derogatory and command in nature), stating "" and "Don't be shy". Patient reports "the voices are confusing". Patient presents as depressed and anxious. Patient presents with paranoia, believing people (providers included) want to and are out to harm her and her family. Patient expressed feeling unsafe secondary to acute psychotic symptoms. Reassurance and support provided. Patient presents as internally preoccupied with poor focus. Responses somewhat delayed. Patient presents as tangential and loosened associations. Insight is limited. Coping skills/ judgment remain impaired. Affect is flat. Medications discussed. Executive Coach to continue meeting with patient through-out stabilization to devise safe discharge plan. Discussed with Family/SO: Yes Was Patient/Family/SO present at Treatment Team Meeting: Yes <Abby Garibay - Last Filed: 07/17/17 12:01> - Diagnosis (1) Psychosis Status: Acute Interventions: 07/17/17 12:00 psychotherapy pharmacotherapy
--- NOTE | 2017-07-11 15:11 | PCM.PSYCH ---
Initial Psychiatric Evaluation - Initial Psychiatric Evaluation Legal Status: Capacity Chief Complaint (in patient's own words): the workers at [facility] cody making fun of me they have control over my body Patient's Reaction to Hospitalization: pt requested help History of Present Illness and Precipitating Events: pt with previous diagnosis of schizophrenia. recently discharged from [facility], pt attended the program today and presented with auditory hallucinations , hearing voices telling her she should for radu, pt , floridaly psychotic beleiving that the workers at [facility] she worked with before are after her and trying to control her body and hurt her pt experiencing paranoid delusions and somatic delusions she denied command hallucinations , denied homicidal ideations, reported feeling increasingly depressed and anxious Current Medications: Active Medications Generic Name Dose Route Start Last Admin Trade Name Freq PRN Reason Stop Dose Admin Chlorpromazine 100 mg 07/11/17 14:51 Thorazine PO Q6 PRN Agitation Chlorpromazine 50 mg 07/11/17 14:53 Thorazine IM Q6 PRN Agitation Clozapine 25 mg 07/11/17 14:50 Clozaril PO DAILY TRISTIN Gabapentin 100 mg 07/11/17 17:00 Neurontin PO TID TRISTIN Hydroxyzine Pamoate 50 mg 07/11/17 14:54 Vistaril PO Q6 PRN Anaphylaxis Olanzapine 5 mg 07/12/17 09:00 Zyprexa PO DAILY TRISTIN Olanzapine 10 mg 07/11/17 22:00 Zyprexa PO HS TRISTIN Venlafaxine HCl 75 mg 07/12/17 09:00 Effexor PO DAILY TRISTIN Past Psychiatric History - Past Psychiatric History Explanation of prior treatment: multiple inpatient hospitalizations History of Family Illness: mothe rhistory of schizophrenia Pertinent Medical Hx (Current Medical&Sleep Prob, Allergies): Allergies Allergy/AdvReac Type Severity Reaction Status Date / Time haloperidol [From Haldol] Allergy ANGIOEDEMA Verified 06/17/17 13:23 Benztropine [Cogentin] 0.5 mg PO BID 07/11/17 Gabapentin [Neurontin] 100 mg PO TID 07/11/17 OLANZapine [Zyprexa Zydis] 10 mg PO BID 07/11/17 hydrOXYzine Pamoate [Vistaril] 25 mg PO TID PRN 07/11/17 Mental Status Examination - Personal Presentation Personal Presentation: Looks stated age - Affect Affect: Depressed - Motor Activity Motor Activity: Psychomotor Retardation - Reliability in Providing Information Reliability in Providing Information: Poor, due to altered mood - Speech Speech: Disorganized - Mood Mood: Depressed, Anxious - Formal Thought Process Formal Thought Process: Hallucinations, Delusions, Paranoia, Loosening of associations - Hallucinations/Delusions Hallucinations: Auditory Delusions: Persecution Additional comments: pt reported non command auditory hallucinations - Obsessions/Compulsions Obsessions: No - Cognitive Functions Orientation: Person, Place Attention/Concentration: Easily distracted Abstract Thinking: [place] Estimate of Intelligence: Below average - Risk Risk: Diminished functioning - Strength & Assets Inventory Strength & Assets Inventory: Family support - Limitations Additional comments: current unemployment DSM 5 DX - DSM 5 DSM 5 Diagnosis: schizophrenia - Recommended/Plan of Treatment Treatment Recommendations and Plan of Treatment: pt has been tried on multiple antipsychotics start zyprexa 15mg will cross titrate zyprexa with clozaril wbc noted 7.5 will start clozaril 25 monitor pt for psychopharmacological effects and side effect profile start neurontin 100mg tid effexor 75 mg daily group and supportive therapy Projected ELOS: 14 days
[2017-07-11 16:55] LABS: HDL CHOLESTEROL 50 MG/DL (30-70)
[2017-07-11 17:07] LABS: LDL CHOLESTEROL 61 mg/dL (0-129)
--- NOTE | 2017-07-11 17:47 | CP.PCM.CON ---
History of Present Illness - History of Present Illness History of Present Illness: HPI: Patient is a 26 y/o female with Schitzoaffective disorder who presented to the hospital because she was having paranoid thoughts and auditory hallucinations that she believes may have led her to harm herself or others. She was recently admitted for the same reason. She was concerned that she was hearing voices and they were getting worse. She denies any fevers/chills/ headache/recent illnesses/nausea/vomting/diarrhea. PMD: [place] PMHX: Schitzoaffective Disorder PSurgical Hx: Denies Allergies: Haloperidol Family Hx: Uncle- Romeo Social: Lives in [facility], denies alcohol use, smoking, or illicit drug use Review of Systems - Review of Systems Review of Systems: 12 point review of systems was conducted and was negative other than what was mentioned in the History of Present Illness. Past Patient History - Infectious Disease Hx of Infectious Diseases: None - Tetanus Immunizations Tetanus Immunization: Unknown - Past Medical History & Family History Past Medical History?: No - Past Social History Smoking Status: Never Smoked - CARDIAC Hx Cardiac Disorders: No Hx Hypertension: No - PULMONARY Hx Respiratory Disorders: No Hx Tuberculosis: No - NEUROLOGICAL Hx Neurological Disorder: No HX Cerebrovascular Accident: No Hx Seizures: No - HEENT Hx HEENT Problems: No - RENAL Hx Chronic Kidney Disease: No - ENDOCRINE/METABOLIC Hx Endocrine Disorders: No - HEMATOLOGICAL/ONCOLOGICAL Hx Blood Disorders: No Hx Cancer: No Hx Human Immunodeficiency Virus (HIV): No - INTEGUMENTARY Hx Dermatological Problems: No - MUSCULOSKELETAL/RHEUMATOLOGICAL Hx Musculoskeletal Disorders: No - GASTROINTESTINAL Hx Gastrointestinal Disorders: No - GENITOURINARY/GYNECOLOGICAL Hx Genitourinary Disorders: No Hx Sexually Transmitted Disorders: No - PSYCHIATRIC Hx Physical Abuse: No Hx Sexual Abuse: No Hx Substance Use: No - SURGICAL HISTORY Hx Surgeries: No - ANESTHESIA Hx Anesthesia: No Meds Allergies/Adverse Reactions: Allergies Allergy/AdvReac Type Severity Reaction Status Date / Time haloperidol [From Haldol] Allergy ANGIOEDEMA Verified 06/17/17 13:23 - Medications Medications: Current Medications Chlorpromazine (Thorazine) 100 mg PO Q6 PRN PRN Reason: Agitation Last Admin: 07/11/17 16:29 Dose: 100 mg Chlorpromazine (Thorazine) 50 mg IM Q6 PRN PRN Reason: Agitation Clozapine (Clozaril) 25 mg PO DAILY TRISTIN Gabapentin (Neurontin) 100 mg PO TID PENDING SALE TO [facility] Last Admin: 07/11/17 17:18 Dose: 100 mg Hydroxyzine Pamoate (Vistaril) 50 mg PO Q6 PRN PRN Reason: Anaphylaxis Olanzapine (Zyprexa) 5 mg PO DAILY TRISTIN Olanzapine (Zyprexa) 10 mg PO HS TRISTIN Venlafaxine HCl (Effexor) 75 mg PO DAILY PENDING SALE TO [facility] Physical Exam - Constitutional Additional comments: Physical exam: Constitutional- cooperative, awake, alert Head- NCAT, PERRL Eye- PERRL, EOMI ENT- normal exam, MMM. Neck- normal inspection, supple, no JVD Respiratory- CTAB, no wheezes rales rhonchi Cardiovascular- tachycardia, regular rhythm, +S1, +S2 no MRG GI/Abdominal- normal bowel sounds, soft, no mass, no hsm Skin- warm, dry Extremities Exam- normal capillary refill, normal inspection Neurological Exam- alert, awake, oriented Psych- Anxious, c/o voices, bizarre affect Results - Vital Signs Recent Vital Signs: Last Vital Signs Temp 98.2 F 07/11/17 14:07 Pulse 102 H 07/11/17 14:07 Resp 18 07/11/17 14:40 BP 132/80 07/11/17 14:07 Pulse Ox 100 07/11/17 11:33 - Labs Result Diagrams: 07/11/17 12:10 07/11/17 12:10 Labs: Laboratory Results - last 24 hr 07/11/17 07/11/17 07/11/17 11:35 11:35 12:10 WBC RBC Hgb Hct MCV MCH MCHC RDW Plt Count MPV Neut % (Auto) Lymph % (Auto) [place] % (Auto) Eos % (Auto) Baso % (Auto) Neut # Lymph # Lyon # Eos # Baso # Sodium 140 Potassium 3.6 Chloride 104 Carbon Dioxide 25 Anion Gap 15 BUN 7 Creatinine 0.5 L Est GFR ( Amer) > 60 Est GFR (Non-Af Amer) > 60 Random Glucose 87 Calcium 8.9 Total Bilirubin 0.2 AST 19 ALT 30 Alkaline Phosphatase 83 Total Protein 7.8 Albumin 4.0 Globulin 3.8 Albumin/Globulin Ratio 1.1 Triglycerides Cholesterol LDL Cholesterol Direct HDL Cholesterol Urine Color Yellow Urine Clarity Cloudy Urine pH 7.0 Ur Specific [place] 1.020 Urine Protein Negative Urine Glucose (UA) Neg Urine Ketones Negative Urine Blood Negative Urine Nitrate Negative Urine Bilirubin Negative Urine Urobilinogen 4.0 H Ur Leukocyte Esterase Neg Urine RBC (Auto) 1 Urine Microscopic WBC 1 Ur Squamous Epith Cells 13 H Urine Bacteria Rare Urine Opiates Screen Negative Urine Methadone Screen Negative Ur Barbiturates Screen Negative Ur Phencyclidine Scrn Negative Ur Amphetamines Screen Negative U Benzodiazepines Scrn Negative U Oth Cocaine Metabols Negative U Cannabinoids Screen Negative Alcohol, Quantitative < 10 07/11/17 07/11/17 12:10 16:00 WBC 7.3 RBC 3.97 Hgb 11.8 L Hct 36.4 MCV 91.6 MCH 29.6 MCHC 32.4 L RDW 13.0 Plt Count 229 MPV 9.3 Neut % (Auto) 61.1 Lymph % (Auto) 27.9 Lyon % (Auto) 9.2 Eos % (Auto) 0.8 Baso % (Auto) 1.0 Neut # 4.5 Lymph # 2.0 Lyon # 0.7 Eos # 0.1 Baso # 0.1 Sodium Potassium Chloride Carbon Dioxide Anion Gap BUN Creatinine Est GFR ( Amer) Est GFR (Non-Af Amer) Random Glucose Calcium Total Bilirubin AST ALT Alkaline Phosphatase Total Protein Albumin Globulin Albumin/Globulin Ratio Triglycerides 198 H D Cholesterol 155 LDL Cholesterol Direct 61 HDL Cholesterol 50 Urine Color Urine Clarity Urine pH Ur Specific [place] Urine Protein Urine Glucose (UA) Urine Ketones Urine Blood Urine Nitrate Urine Bilirubin Urine Urobilinogen Ur Leukocyte Esterase Urine RBC (Auto) Urine Microscopic WBC Ur Squamous Epith Cells Urine Bacteria Urine Opiates Screen Urine Methadone Screen Ur Barbiturates Screen Ur Phencyclidine Scrn Ur Amphetamines Screen U Benzodiazepines Scrn U Oth Cocaine Metabols U Cannabinoids Screen Alcohol, Quantitative Assessment & Plan - Assessment and Plan (Free Text) Plan: Assessment: Patient is a 26 y/o female with Schitzoaffective disorder admitted for suicidal ideation in the presence of persecutory auditory hallucinations. #Schizoaffective Disorder, acute -as per psychiatry -Currently receiving Risperidone injections -Ativan prn #Sinus Tachycardia, borderline -Likely anxiety related- noted on previous admission as well. -Thyroid labs normal -U tox normal -Will continue to monitor #Diet -Regular
--- NOTE | 2017-07-12 10:32 | PCM.PYCHPN ---
Psychiatric Progress Note - Psychiatric Progress Note Patient seen today, length of contact: pt evaluated discussed with team chart reviewed Patient Chief Complaint: the voices are trying to stop my heart they are trying to hurt me Problems Identified/Issues Discussed: pt on evaluationfloridaly psychotic, having somatic delusions beleiving the voices have control on her body function and trying to stop her heart pt reported having auditory hallucinations stating she hears voices telling her she has to for radu pt denied active suicidal ideation on the unit reported she is trying to distract herself , denied homicidal ideations no reported changes in sleep or appetite no reported side effects of medications Medical Problems: multiple inpatient hospitalizations DSM 5 Symptoms Update: schizophrenia Medication Change: Yes (increase clozaril) Medical Record Reviewed: Yes Mental Status Examination - Cognitive Function Orientation: Person, Place Attention: WNL Concentration: Poor Association: Loose Fund of Knowledge: Poor Decription of patient's judgement and insights: partial insight and poor judgment - Mood Mood: Depressed, Anxious - Affect Affect: Depressed - Speech Speech: Soft - Formal Thought Process Formal Thought Process: Hallucinations, Delusions, Paranoia, Loosening of associations Psychotic Thoughts and Behaviors: pt has non command auditory hallucinations and paranoid delusions - Suicidal Ideation Suicidal Ideation: No - Homicidal Ideation Homicidal Ideation: No Goal/Treatment Plan - Goal/Treatment Plan Need for Continued Stay: Remain at risks for inpatient hospitalization, Discharge may exacerbated symptoms Progress Toward Problem(s) and Goals/Treatment Plan: increase clozaril 25mg bid as pt continues to be floridaly psychotic, monitor wbc and anc monitor pt for psychopharmacological effects and side effect profile continue zyprexa, will be gradually cross titrated with clozaril start neurontin 100mg tid effexor 75 mg daily group and supportive therapy Estimated Date of D/C: 07/26/17
--- NOTE | 2017-07-12 13:13 | CARD ---
APPROVED REPORT EKG Measurement Heart [id number] <Conclusion> Sinus tachycardia Possible Left atrial enlargement Nonspecific T wave abnormality Abnormal ECG
--- NOTE | 2017-07-13 12:31 | PCM.PYCHPN ---
Psychiatric Progress Note - Psychiatric Progress Note Patient seen today, length of contact: pt evaluated discussed with team chart reviewed Patient Chief Complaint: the voices are making me anxious they tell me people are making fun of me Problems Identified/Issues Discussed: pt on evaluation presenting with anxious mood and affect, reported feeling distressed by the voices mocking her and putting her down pt reported presenting with paranoid delusions stating that others are making fun of her and that her family wants her continues to be actively psychotic pt denied command hallucinations denied active suicidal or homicidal ideations on the unit no reported side effects of clozaril Medical Problems: multiple inpatient hospitalizations DSM 5 Symptoms Update: schizophrenia Medication Change: Yes (increase neurontin) Medical Record Reviewed: Yes Mental Status Examination - Cognitive Function Orientation: Person, Place Attention: WNL Concentration: Poor Association: Loose Fund of Knowledge: Poor Decription of patient's judgement and insights: partial insight and poor judgment - Mood Mood: Depressed, Anxious - Affect Affect: Depressed - Speech Speech: Soft - Formal Thought Process Formal Thought Process: Hallucinations, Delusions, Paranoia, Loosening of associations Psychotic Thoughts and Behaviors: pt has non command auditory hallucinations and paranoid delusions - Suicidal Ideation Suicidal Ideation: No - Homicidal Ideation Homicidal Ideation: No Goal/Treatment Plan - Goal/Treatment Plan Need for Continued Stay: Remain at risks for inpatient hospitalization, Discharge may exacerbated symptoms Progress Toward Problem(s) and Goals/Treatment Plan: continue clozaril 25mg bid as pt continues to be floridaly psychotic, monitor wbc and anc monitor pt for psychopharmacological effects and side effect profile continue zyprexa, will be gradually cross titrated with clozaril increase neurontin 200mg tid effexor 75 mg daily group and supportive therapy Estimated Date of D/C: 07/26/17
[2017-07-14 10:45] LABS: BASO % 0.7 % (0.0-2.0); EOS # 0.2 K/uL (0.0-0.7); EOS % 3.6 % (0.0-4.0); HEMOGLOBIN 12.3 g/dL (12.0-16.0); LYMPH # 1.6 K/uL (1.0-4.3); LYMPH % 24.2 % (20.0-40.0); MEAN CELL VOLUME 90.8 fl (81.0-99.0); MEAN CORPUSCULAR HEMOGLOBIN 30.8 pg (27.0-31.0); MEAN CORPUSCULAR HGB CONC 33.9 g/dL (33.0-37.0); MEAN PLATELET VOLUME 9.3 fl (7.2-11.7); MONO # 0.6 K/uL (0.0-0.8); MONO % 9.1 % (0.0-10.0); NEUT # 4.2 K/uL (1.8-7.0); NEUT % 62.4 % (50.0-75.0); RBC 3.98 Mil/uL (3.80-5.20); RED CELL DISTRIBUTION WIDTH 12.9 % (11.5-14.5); WHITE BLOOD COUNT 6.8 K/uL (4.8-10.8)
--- NOTE | 2017-07-14 11:26 | PCM.PYCHPN ---
Psychiatric Progress Note - Psychiatric Progress Note Patient seen today, length of contact: pt evaluated discussed with team chart reviewed Patient Chief Complaint: I still hear the voices, they tell me I am A looser Problems Identified/Issues Discussed: pt on evaluation continues to feel anxious as the voices keeps putting her down and mocking her , anxious and dysphoric affect ptcontinues to have paranoid delusions stating that others are making fun of her and that her family wants her continues to be actively psychotic pt denied command hallucinations denied active suicidal or homicidal ideations on the unit no reported side effects of clozaril, vital signs are stable no reported chest pain wbc reppeated and noted to be 6.9 , will uptitrate clozaril as discussed with pt Medical Problems: multiple inpatient hospitalizations DSM 5 Symptoms Update: schizophrenia Medication Change: Yes (increase clozaril) Medical Record Reviewed: Yes Mental Status Examination - Cognitive Function Orientation: Person, Place Attention: WNL Concentration: Poor Association: Loose Fund of Knowledge: Poor Decription of patient's judgement and insights: partial insight and poor judgment - Mood Mood: Depressed, Anxious - Affect Affect: Depressed - Speech Speech: Soft - Formal Thought Process Formal Thought Process: Hallucinations, Delusions, Paranoia, Loosening of associations Psychotic Thoughts and Behaviors: pt has non command auditory hallucinations and paranoid delusions - Suicidal Ideation Suicidal Ideation: No - Homicidal Ideation Homicidal Ideation: No Goal/Treatment Plan - Goal/Treatment Plan Need for Continued Stay: Remain at risks for inpatient hospitalization, Discharge may exacerbated symptoms Progress Toward Problem(s) and Goals/Treatment Plan: increase clozaril to 50 mg bid as pt continues to be floridaly psychotic, monitor wbc and anc, wbc 07/14/17 6.9 monitor pt for psychopharmacological effects and side effect profile continue zyprexa, will be gradually cross titrated with clozaril continue with neurontin 200mg tid and effexor 75 mg daily group and supportive therapy Estimated Date of D/C: 07/26/17
--- NOTE | 2017-07-15 10:51 | PCM.PYCHPN ---
Psychiatric Progress Note - Psychiatric Progress Note Patient seen today, length of contact: pt evaluated discussed with team chart reviewed Patient Chief Complaint: I try to distract myself but the voices keep telling me I am a disgrace to my family Problems Identified/Issues Discussed: pt on evaluation continues to have auditory hallucinations , reported non command in nature yet making her very anxious as they keep putting her down and criticizing all her actions, pt continues to be unkempt , not attending to her personal hygiene isolative in her room as she feels that other people are judging her discussed with pt some coping skills with the auditory hallucinations and importance ot attending groups no reported changes in sleep or appetite, pt denied command hallucinations, denied active suicidal or homicidal ideations no reported side effects of clozaril Medical Problems: multiple inpatient hospitalizations DSM 5 Symptoms Update: schizophrenia Medication Change: No Medical Record Reviewed: Yes Mental Status Examination - Cognitive Function Orientation: Person, Place Attention: WNL Concentration: Poor Association: Loose Fund of Knowledge: Poor Decription of patient's judgement and insights: partial insight and poor judgment - Mood Mood: Depressed, Anxious - Affect Affect: Depressed - Speech Speech: Soft - Formal Thought Process Formal Thought Process: Hallucinations, Delusions, Paranoia, Loosening of associations Psychotic Thoughts and Behaviors: pt has non command auditory hallucinations and paranoid delusions - Suicidal Ideation Suicidal Ideation: No - Homicidal Ideation Homicidal Ideation: No Goal/Treatment Plan - Goal/Treatment Plan Need for Continued Stay: Remain at risks for inpatient hospitalization, Discharge may exacerbated symptoms Progress Toward Problem(s) and Goals/Treatment Plan: continue with clozaril 50 mg bid with plan to uptitrate graduallyas pt continues to be floridaly psychotic, monitor wbc and anc, wbc 07/14/17 6.9 monitor pt for psychopharmacological effects and side effect profile continue zyprexa, will be gradually cross titrated with clozaril continue with neurontin 200mg tid and effexor 75 mg daily group and supportive therapy Estimated Date of D/C: 07/26/17
--- NOTE | 2017-07-16 12:30 | PCM.PYCHPN ---
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, pt presenting with paranoid delusions towards her family and also hospital staff, stating the voices are telling her that she is a burden on every body discussed with pt possible coping skills with the voices, the need for her to attaend groups and to distract herself also trying to reason if possible with the reality of their statements pt denied any current active suicidal or homicidal ideations or plan no reported side effects of clozaril, no chest pains, no fever discussed with pt gradual titration of clozaril Medical Problems: multiple inpatient hospitalizations DSM 5 Symptoms Update: schizophrenia Medication Change: No Medical Record Reviewed: Yes Mental Status Examination - Cognitive Function Orientation: Person, Place Attention: WNL Concentration: Poor Association: Loose Fund of Knowledge: Poor Decription of patient's judgement and insights: partial insight and poor judgment - Mood Mood: Depressed, Anxious - Affect Affect: Depressed - Speech Speech: Soft - Formal Thought Process Formal Thought Process: Hallucinations, Delusions, Paranoia, Loosening of associations Psychotic Thoughts and Behaviors: pt has non command auditory hallucinations and paranoid delusions - Suicidal Ideation Suicidal Ideation: No - Homicidal Ideation Homicidal Ideation: No Goal/Treatment Plan - Goal/Treatment Plan Need for Continued Stay: Remain at risks for inpatient hospitalization, Discharge may exacerbated symptoms Progress Toward Problem(s) and Goals/Treatment Plan: continue with clozaril 50 mg bid with plan to uptitrate graduallyas pt continues to be floridaly psychotic, monitor wbc and anc, wbc 07/14/17 6.9, anc 4.9 monitor pt for psychopharmacological effects and side effect profile continue zyprexa, will be gradually cross titrated with clozaril continue with neurontin 200mg tid increase effexor to 150mg daily for depression and anxiety group and supportive therapy Estimated Date of D/C: 07/26/17
[2017-07-17] MEDS: Venlafaxine 150 mg ER Cap PO SCH (09:00)
--- NOTE | 2017-07-17 12:10 | PCM.PYCHPN ---
Psychiatric Progress Note - Psychiatric Progress Note Patient seen today, length of contact: pt evaluated discussed with team chart reviewed Patient Chief Complaint: the voices now tell me good things they tell me they want to me Problems Identified/Issues Discussed: pt on evaluation continues to have auditory hallucinations , stated they are now telling her happy things and they want to her, pt however continues to be floridaly psychotic stated that she would not drink coffee otherwise she would , stated she can hear previous collegues in her previous job making fun of her pt continues to be overwhelmed and anxious about her housin situation, needs a lot of encouragment to attend to her personal hygiene and to attend groups pt denied any current command hallucinations, denied any active suicdal or homicidal ideations, no reported side effects of medications Medical Problems: multiple inpatient hospitalizations DSM 5 Symptoms Update: schizophrenia Medication Change: Yes (increase clozaril) Medical Record Reviewed: Yes Mental Status Examination - Cognitive Function Orientation: Person, Place Attention: WNL Concentration: Poor Association: Loose Fund of Knowledge: Poor Decription of patient's judgement and insights: partial insight and poor judgment - Mood Mood: Depressed, Anxious - Affect Affect: Depressed - Speech Speech: Soft - Formal Thought Process Formal Thought Process: Hallucinations, Delusions, Paranoia, Loosening of associations Psychotic Thoughts and Behaviors: pt has non command auditory hallucinations and paranoid delusions - Suicidal Ideation Suicidal Ideation: No - Homicidal Ideation Homicidal Ideation: No Goal/Treatment Plan - Goal/Treatment Plan Need for Continued Stay: Remain at risks for inpatient hospitalization, Discharge may exacerbated symptoms Progress Toward Problem(s) and Goals/Treatment Plan: increase clozaril to 125mg daily with plan to uptitrate gradually as pt continues to be floridaly psychotic, monitor wbc and anc, wbc 07/14/17 6.9, anc 4.9 monitor pt for psychopharmacological effects and side effect profile continue zyprexa, will be gradually cross titrated with clozaril continue with neurontin 200mg tid increase effexor to 150mg daily for depression and anxiety group and supportive therapy Estimated Date of D/C: 07/26/17
[2017-07-18] MEDS: Venlafaxine 150 mg ER Cap PO SCH (08:49)
--- NOTE | 2017-07-18 14:11 | PCM.PYCHPN ---
Psychiatric Progress Note - Psychiatric Progress Note Patient seen today, length of contact: pt evaluated discussed with team chart reviewed Patient Chief Complaint: the voices still bother me they want me to get Problems Identified/Issues Discussed: pt on evaluation appears less anxious, stated that the voices are on and off continue to comment on her behavior , telling her they want to her pt continues to present with disorganized thought process and paranoid ideations towards her family, beleiving her family member wants her pt need a lot of encouragment to attend groups and to attend to her personal hygiene pt denied command hallucinations denied any current suicidal or homicidal ideations no reported side effects of medications Medical Problems: multiple inpatient hospitalizations DSM 5 Symptoms Update: schizophrenia Medication Change: Yes (decrease zyprexa to 10mg) Medical Record Reviewed: Yes Mental Status Examination - Cognitive Function Orientation: Person, Place Attention: WNL Concentration: Poor Association: Loose Fund of Knowledge: Poor Decription of patient's judgement and insights: partial insight and poor judgment - Mood Mood: Depressed, Anxious - Affect Affect: Depressed - Speech Speech: Soft - Formal Thought Process Formal Thought Process: Hallucinations, Delusions, Paranoia, Loosening of associations Psychotic Thoughts and Behaviors: pt has non command auditory hallucinations and paranoid delusions - Suicidal Ideation Suicidal Ideation: No - Homicidal Ideation Homicidal Ideation: No Goal/Treatment Plan - Goal/Treatment Plan Need for Continued Stay: Remain at risks for inpatient hospitalization, Discharge may exacerbated symptoms Progress Toward Problem(s) and Goals/Treatment Plan: continue clozaril 125mg daily with plan to uptitrate gradually as pt continues to be floridaly psychotic, monitor wbc and anc, wbc 07/14/17 6.9, anc 4.9 monitor pt for psychopharmacological effects and side effect profile decrease zyprexa,to 10mg will be gradually cross titrated with clozaril continue with neurontin 200mg tid continue effexor 150mg daily for depression and anxiety group and supportive therapy Estimated Date of D/C: 07/26/17
[2017-07-19] MEDS: Venlafaxine 150 mg ER Cap PO SCH (09:00)
--- NOTE | 2017-07-19 10:55 | PCM.PYCHPN ---
Psychiatric Progress Note - Psychiatric Progress Note Patient seen today, length of contact: pt evaluated discussed with team chart reviewed Patient Chief Complaint: pt still hears voices and telling her to drink coffee and about happy things .pt is tolerating clozaril very well and no side effects to meds Medication Change: Yes (decrease zyprexa to 10mg) Medical Record Reviewed: Yes Mental Status Examination - Cognitive Function Orientation: Person, Place Attention: WNL Concentration: Poor Association: Loose Fund of Knowledge: Poor - Mood Mood: Depressed, Anxious - Affect Affect: Depressed - Speech Speech: Soft - Formal Thought Process Formal Thought Process: Hallucinations, Delusions, Paranoia, Loosening of associations - Suicidal Ideation Suicidal Ideation: No - Homicidal Ideation Homicidal Ideation: No Goal/Treatment Plan - Goal/Treatment Plan Need for Continued Stay: Remain at risks for inpatient hospitalization, Discharge may exacerbated symptoms Progress Toward Problem(s) and Goals/Treatment Plan: will continue to titrate meds by checking CBC for clozaril and adjusting the dose of clozaril to stabilize the psychosis. Disposition plans as per dr henry Estimated Date of D/C: 07/26/17
[2017-07-20] MEDS: Venlafaxine 150 mg ER Cap PO SCH (08:30)
--- NOTE | 2017-07-20 12:56 | PCM.PYCHPN ---
Psychiatric Progress Note - Psychiatric Progress Note Patient seen today, length of contact: pt evaluated discussed with team chart reviewed Patient Chief Complaint: pt still hears voices and telling her to drink coffee and about happy things .pt is tolerating clozaril very well and no side effects to meds pt c/o drooling and says that cogentin helps her wBC= 6.8 no side effects to meds Medication Change: No Medical Record Reviewed: Yes Mental Status Examination - Cognitive Function Orientation: Person, Place Attention: WNL Concentration: Poor Association: Loose Fund of Knowledge: Poor - Mood Mood: Depressed, Anxious - Affect Affect: Depressed - Speech Speech: Soft - Formal Thought Process Formal Thought Process: Hallucinations, Delusions, Paranoia, Loosening of associations - Suicidal Ideation Suicidal Ideation: No - Homicidal Ideation Homicidal Ideation: No Goal/Treatment Plan - Goal/Treatment Plan Need for Continued Stay: Remain at risks for inpatient hospitalization, Discharge may exacerbated symptoms Progress Toward Problem(s) and Goals/Treatment Plan: will continue to titrate meds by checking CBC for clozaril and adjusting the dose of clozaril to stabilize the psychosis. will add cogentin 0.5 mg hs Disposition plans as per dr henry Estimated Date of D/C: 07/26/17
[2017-07-21] MEDS: Venlafaxine 150 mg ER Cap PO SCH (08:50)
[2017-07-21 09:14] LABS: BASO # 0.1 K/uL (0.0-0.2); BASO % 1.1 % (0.0-2.0); EOS # 0.2 K/uL (0.0-0.7); EOS % 2.8 % (0.0-4.0); HEMOGLOBIN 12.9 g/dL (12.0-16.0); LYMPH # 2.5 K/uL (1.0-4.3); LYMPH % 33.9 % (20.0-40.0); MEAN CELL VOLUME 90.2 fl (81.0-99.0); MEAN CORPUSCULAR HGB CONC 33.3 g/dL (33.0-37.0); MEAN PLATELET VOLUME 8.8 fl (7.2-11.7); MONO # 0.6 K/uL (0.0-0.8); MONO % 8.5 % (0.0-10.0); NEUT # 3.9 K/uL (1.8-7.0); NEUT % 53.7 % (50.0-75.0); NRBC % 0.1 % (0.0-0.0); RBC 4.29 Mil/uL (3.80-5.20); WHITE BLOOD COUNT 7.3 K/uL (4.8-10.8)
--- NOTE | 2017-07-21 14:41 | PCM.PYCHPN ---
Psychiatric Progress Note - Psychiatric Progress Note Patient seen today, length of contact: pt evaluated discussed with team chart reviewed Patient Chief Complaint: the voices are less and they tell me good things Problems Identified/Issues Discussed: pt on evaluation appears less anxious, thought process less disorganized however pt continues to have delusions of persecution towards her family pt continues to need a lot of encouragment to attend groups and tp attend her personal hygeine reported increased salivation with clozaril, will start cogentin denied any current suicidal or homicidal ideations Medical Problems: multiple inpatient hospitalizations DSM 5 Symptoms Update: schizophrenia Medication Change: Yes (increase clozaril) Medical Record Reviewed: Yes Mental Status Examination - Cognitive Function Orientation: Person, Place Attention: WNL Concentration: Poor Association: Loose Fund of Knowledge: Poor - Mood Mood: Depressed, Anxious - Affect Affect: Depressed - Speech Speech: Soft - Formal Thought Process Formal Thought Process: Hallucinations, Delusions, Paranoia, Loosening of associations - Suicidal Ideation Suicidal Ideation: No - Homicidal Ideation Homicidal Ideation: No Goal/Treatment Plan - Goal/Treatment Plan Need for Continued Stay: Remain at risks for inpatient hospitalization, Discharge may exacerbated symptoms Progress Toward Problem(s) and Goals/Treatment Plan: IncreaSE CLOZARIL TO 175 MG WBC 7, CONTINUE WITH COGENTIN continue with neurontin 200mg tid continue effexor 150mg daily for depression and anxiety group and supportive therapy Estimated Date of D/C: 07/26/17
[2017-07-22] MEDS: Venlafaxine 150 mg ER Cap PO SCH (09:35)
--- NOTE | 2017-07-22 13:08 | PCM.PYCHPN ---
Psychiatric Progress Note - Psychiatric Progress Note Patient seen today, length of contact: pt evaluated discussed with team chart reviewed Patient Chief Complaint: the voices want me to go to court so [employer] COULD PUT ME IN HALFWAY Problems Identified/Issues Discussed: PT , REQUESTING TO BE DISCHARGED AND GUARDED TOWARDS HER SYMPTOMS, ON FURTHER EVALUATION PT STATED SHE CONTINUES TO HEAR VOICES TELLING HER PEOPLE ON UNIT ARE AGAINST HER AND THAT PEOPLE FROM [employer] ARE PLANNING TO PUT HER INJAIL PT DENIED COMMAND HALLUCINATIONS BUT CONTINUES TO HAVE DISORGANIZED THOUGHT PROCESS AND DELUSIONS OF PERSECUTION NEEDS A LOT OF ENCOURAGMENT TO ATTAEND GROUPS AND TO CARE FOR HER PERSONAL HYGEINE PT DENIED ANY CURRENT SUICIDAL OR HOMICIDAL IDEATIONS , NO REPORTED SIDE EFFCTS OF MEDICATIONS Medical Problems: multiple inpatient hospitalizations DSM 5 Symptoms Update: SCHIZOPHRENIA Medication Change: No Medical Record Reviewed: Yes Mental Status Examination - Cognitive Function Orientation: Person, Place Attention: WNL Concentration: Poor Association: Loose Fund of Knowledge: Poor - Mood Mood: Depressed, Anxious - Affect Affect: Depressed - Speech Speech: Soft - Formal Thought Process Formal Thought Process: Hallucinations, Delusions, Paranoia, Loosening of associations - Suicidal Ideation Suicidal Ideation: No - Homicidal Ideation Homicidal Ideation: No Goal/Treatment Plan - Goal/Treatment Plan Need for Continued Stay: Remain at risks for inpatient hospitalization, Discharge may exacerbated symptoms Progress Toward Problem(s) and Goals/Treatment Plan: continue with CLOZARIL 175 MG WBC 7, CONTINUE WITH COGENTIN 0.5mg, decrease zyprexa to 5mg continue with neurontin 200mg tid continue effexor 150mg daily for depression and anxiety group and supportive therapy Estimated Date of D/C: 07/26/17
[2017-07-23] MEDS: Venlafaxine 150 mg ER Cap PO SCH (09:21)
--- NOTE | 2017-07-23 13:47 | PCM.PYCHPN ---
Psychiatric Progress Note - Psychiatric Progress Note Patient seen today, length of contact: pt evaluated discussed with team chart reviewed Patient Chief Complaint: I want to leave I do not want to be here Problems Identified/Issues Discussed: PT ,on evaluation anxious, sad and terful, pt reported continues to have auditory hallucinations telling her that no body wants to help her, pt continues to be disheveled , needs a lot of encouragment to attend to her personal hygiene needs encouragment to attend groups, continues to have delusions of persecution towards staff denied S/H I denied command hallucinations no reported side effets of clozaril Medical Problems: multiple inpatient hospitalizations DSM 5 Symptoms Update: schizophrenia Medication Change: Yes (incease clozaril) Medical Record Reviewed: Yes Mental Status Examination - Cognitive Function Orientation: Person, Place Attention: WNL Concentration: Poor Association: Loose Fund of Knowledge: Poor - Mood Mood: Depressed, Anxious - Affect Affect: Depressed - Speech Speech: Soft - Formal Thought Process Formal Thought Process: Hallucinations, Delusions, Paranoia, Loosening of associations - Suicidal Ideation Suicidal Ideation: No - Homicidal Ideation Homicidal Ideation: No Goal/Treatment Plan - Goal/Treatment Plan Need for Continued Stay: Remain at risks for inpatient hospitalization, Discharge may exacerbated symptoms Progress Toward Problem(s) and Goals/Treatment Plan: discontinue zyprexa increase clozaril to 200mg, monitor ANC and WBC continue with neurontin 200mg tid continue effexor 150mg daily for depression and anxiety group and supportive therapy Estimated Date of D/C: 07/26/17
[2017-07-24] MEDS: Venlafaxine 150 mg ER Cap PO SCH (09:10)
--- NOTE | 2017-07-24 12:38 | PCM.PYCHPN ---
Psychiatric Progress Note - Psychiatric Progress Note Patient seen today, length of contact: pt evaluated discussed with team chart reviewed Patient Chief Complaint: The voices have control on my body, they make me have a heavy period Problems Identified/Issues Discussed: PT ,on evaluation continues to present with disorganized thought process with delusions of persecution towards her special education case manager , believing she wants her in skilled nursing and somatic delusions believing the voices are controlling her body parts . pt continues to experience non command auditory hallucinations , rpeorted they are lower than before , on and off , putting her down pt denied any current active suicidal ideations , denied homicidal ideations, no reported side effects of clozaril Medical Problems: multiple inpatient hospitalizations DSM 5 Symptoms Update: schizophrenia Medication Change: No Medical Record Reviewed: Yes Mental Status Examination - Cognitive Function Orientation: Person, Place Attention: WNL Concentration: Poor Association: Loose Fund of Knowledge: Poor - Mood Mood: Depressed, Anxious - Affect Affect: Depressed - Speech Speech: Soft - Formal Thought Process Formal Thought Process: Hallucinations, Delusions, Paranoia, Loosening of associations - Suicidal Ideation Suicidal Ideation: No - Homicidal Ideation Homicidal Ideation: No Goal/Treatment Plan - Goal/Treatment Plan Need for Continued Stay: Remain at risks for inpatient hospitalization, Discharge may exacerbated symptoms Progress Toward Problem(s) and Goals/Treatment Plan: continue clozaril 200mg daily , monitor ANC and WBC continue with neurontin 200mg tid continue effexor 150mg daily for depression and anxiety group and supportive therapy Estimated Date of D/C: 07/26/17
[2017-07-25] MEDS: Venlafaxine 150 mg ER Cap PO SCH (08:28)
--- NOTE | 2017-07-25 13:48 | PCM.PYCHPN ---
Psychiatric Progress Note - Psychiatric Progress Note Patient seen today, length of contact: pt evaluated discussed with team chart reviewed Patient Chief Complaint: The voices are less today, i am feeling better Problems Identified/Issues Discussed: PT on evaluation, more attentive to her personal hygiene m better groomed today , continues to have delusions of persecution, believing her [employer] worker is against her and wants to hurt her, discussed with pt importance of challenging the paranoid delusions pt stated that the auditory hallucinations are less today 11/06 and non command in nature no side effects of clozaril, other than increased salivation at night pt denied any current suicidal or homicidal ideations attending groups and participating in treatment Medical Problems: multiple inpatient hospitalizations DSM 5 Symptoms Update: schizophrenia Medication Change: Yes (increase cogentin) Medical Record Reviewed: Yes Mental Status Examination - Cognitive Function Orientation: Person, Place Attention: WNL Concentration: Poor Association: Loose Fund of Knowledge: Poor - Mood Mood: Depressed, Anxious - Affect Affect: Depressed - Speech Speech: Soft - Formal Thought Process Formal Thought Process: Hallucinations, Delusions, Paranoia, Loosening of associations - Suicidal Ideation Suicidal Ideation: No - Homicidal Ideation Homicidal Ideation: No Goal/Treatment Plan - Goal/Treatment Plan Need for Continued Stay: Remain at risks for inpatient hospitalization, Discharge may exacerbated symptoms Progress Toward Problem(s) and Goals/Treatment Plan: continue clozaril 200mg daily , monitor ANC and WBC continue with neurontin 200mg tid continue effexor 150mg daily for depression and anxiety increase cogentin to 1mg qhs group and supportive therapy Estimated Date of D/C: 07/30/17
[2017-07-26] MEDS: Venlafaxine 150 mg ER Cap PO SCH (09:12)
--- NOTE | 2017-07-26 11:13 | PCM.PYCHPN ---
Psychiatric Progress Note - Psychiatric Progress Note Patient seen today, length of contact: Patient evaluated, case discussed with team, chart reviewed Patient Chief Complaint: "I'm hearing voices." Problems Identified/Issues Discussed: Patient continues to be paranoid and hearing voices. She is complaint with medications and we discussed continued titration of Clozapine. Medication Change: Yes (Increase Clozapine) Medical Record Reviewed: Yes Consults ordered or reviewed: Medicine consult Mental Status Examination - Cognitive Function Orientation: Person, Place, Situation Memory: Impaired Attention: WNL Concentration: Poor Association: Loose Fund of Knowledge: Poor Decription of patient's judgement and insights: Limited I/J - Mood Mood: Depressed, Anxious - Affect Affect: Depressed - Speech Speech: Soft - Formal Thought Process Formal Thought Process: Hallucinations, Delusions, Paranoia, Loosening of associations Psychotic Thoughts and Behaviors: +AH, paranoia, delusions - Suicidal Ideation Suicidal Ideation: No - Homicidal Ideation Homicidal Ideation: No Goal/Treatment Plan - Goal/Treatment Plan Need for Continued Stay: Remain at risks for inpatient hospitalization, Discharge may exacerbated symptoms Progress Toward Problem(s) and Goals/Treatment Plan: Schizoaffective Disorder -Increase Clozapine to 50 mg PO Daily/ 200 mg PO HS -Continue to monitor ANC/ CBC -Continue Effexor 150 mg PO Daily -Continue Cogentin 1 mg PO HS -Individual and group therapy -Psychoeducation -Disposition planning Estimated Date of D/C: 07/30/17
--- NOTE | 2017-07-27 09:39 | PCM.PYCHPN ---
Psychiatric Progress Note - Psychiatric Progress Note Patient seen today, length of contact: Patient evaluated, case discussed with team, chart reviewed Patient Chief Complaint: "I'm hearing voices." Problems Identified/Issues Discussed: Patient continues to be paranoid and hearing voices. She has a delusional belief that someone will try to take her to court due to come issue with [employer], but she would not specify due to paranoia. She continues to hear voices telling her to "stop being shy" and "why can't you for Tabatha?" She denies current suicidal ideation/plan/intent. She is complaint with medications. Medication Change: No Medical Record Reviewed: Yes Consults ordered or reviewed: Medicine consult Mental Status Examination - Cognitive Function Orientation: Person, Place, Situation Memory: Impaired Attention: WNL Concentration: Poor Association: Loose Fund of Knowledge: Poor Decription of patient's judgement and insights: Limited I/J - Mood Mood: Depressed, Anxious - Affect Affect: Depressed - Speech Speech: Soft - Formal Thought Process Formal Thought Process: Hallucinations, Delusions, Paranoia, Loosening of associations Psychotic Thoughts and Behaviors: +AH, paranoia, delusions - Suicidal Ideation Suicidal Ideation: No - Homicidal Ideation Homicidal Ideation: No Goal/Treatment Plan - Goal/Treatment Plan Need for Continued Stay: Remain at risks for inpatient hospitalization, Discharge may exacerbated symptoms Progress Toward Problem(s) and Goals/Treatment Plan: Schizoaffective Disorder -Continue Clozapine 50 mg PO Daily/ 200 mg PO HS -Continue to monitor ANC/ CBC -Continue Effexor 150 mg PO Daily -Continue Cogentin 1 mg PO HS -Individual and group therapy -Psychoeducation -Disposition planning Estimated Date of D/C: 07/31/17
[2017-07-27] MEDS: Venlafaxine 150 mg ER Cap PO SCH ×2 (11:15→11:16)
[2017-07-27 17:51] LABS: BASO # 0.1 K/uL (0.0-0.2); BASO % 0.9 % (0.0-2.0); EOS # 0.2 K/uL (0.0-0.7); EOS % 2.3 % (0.0-4.0); HEMOGLOBIN 12.6 g/dL (12.0-16.0); LYMPH # 2.3 K/uL (1.0-4.3); MEAN CORPUSCULAR HEMOGLOBIN 29.8 pg (27.0-31.0); MEAN CORPUSCULAR HGB CONC 32.8 g/dL (33.0-37.0); MEAN PLATELET VOLUME 9.1 fl (7.2-11.7); MONO # 0.7 K/uL (0.0-0.8); MONO % 8.3 % (0.0-10.0); NEUT # 5.6 K/uL (1.8-7.0); NEUT % 62.5 % (50.0-75.0); NRBC % 0.1 % (0.0-0.0); RBC 4.21 Mil/uL (3.80-5.20); RED CELL DISTRIBUTION WIDTH 12.7 % (11.5-14.5)
[2017-07-28] MEDS: Venlafaxine 150 mg ER Cap PO SCH (08:53)
--- NOTE | 2017-07-28 13:13 | PCM.PYCHPN ---
Psychiatric Progress Note - Psychiatric Progress Note Patient seen today, length of contact: Patient evaluated, case discussed with team, chart reviewed Patient Chief Complaint: "I'm getting better." Problems Identified/Issues Discussed: Patient is less paranoid and reports that the voices are less. She has not heard AH today. She seems to have improved insight. She denies current suicidal ideation/plan/intent. She is complaint with medications. Medication Change: Yes (Lower cogentin to 0.5 mg PO HS) Medical Record Reviewed: Yes Consults ordered or reviewed: Medicine consult Mental Status Examination - Cognitive Function Orientation: Person, Place, Situation, Time Memory: Intact Attention: WNL Concentration: Poor Association: WNL Fund of Knowledge: WNL Decription of patient's judgement and insights: Improving I/J - Mood Mood: Anxious - Affect Affect: Constricted - Speech Speech: Soft - Formal Thought Process Formal Thought Process: Paranoia, Loosening of associations Psychotic Thoughts and Behaviors: +Less AH, Less paranoia - Suicidal Ideation Suicidal Ideation: No - Homicidal Ideation Homicidal Ideation: No Goal/Treatment Plan - Goal/Treatment Plan Need for Continued Stay: Remain at risks for inpatient hospitalization, Discharge may exacerbated symptoms Progress Toward Problem(s) and Goals/Treatment Plan: Schizoaffective Disorder -Continue Clozapine 50 mg PO Daily/ 200 mg PO HS -Continue to monitor ANC/ CBC -Continue Effexor 150 mg PO Daily -Decrease Cogentin to 0.5 mg PO HS -Individual and group therapy -Psychoeducation -Disposition planning Estimated Date of D/C: 07/31/17
[2017-07-29] MEDS: Venlafaxine 150 mg ER Cap PO SCH (09:13)
--- NOTE | 2017-07-29 10:42 | PCM.PYCHPN ---
Psychiatric Progress Note - Psychiatric Progress Note Patient seen today, length of contact: Patient evaluated, case discussed with team, chart reviewed Patient Chief Complaint: "I'm getting better." Problems Identified/Issues Discussed: Patient reports that the voices are less frequent and intense. She reports that she last heard AH yesterday. She is more goal oriented and engaged in the community. She continues to have constricted affect. Patient is encouraged to participate in groups and shower. She denies current suicidal ideation/plan /intent. She is complaint with medications. Medication Change: No Medical Record Reviewed: Yes Mental Status Examination - Cognitive Function Orientation: Person, Place, Situation, Time Memory: Intact Attention: WNL Concentration: Poor Association: WNL Fund of Knowledge: WNL Decription of patient's judgement and insights: Improving I/J - Mood Mood: Anxious - Affect Affect: Constricted - Speech Speech: Soft - Formal Thought Process Formal Thought Process: Hallucinations (Last heard yesterday), Loosening of associations Psychotic Thoughts and Behaviors: +Less AH, no acute paranoia - Suicidal Ideation Suicidal Ideation: No - Homicidal Ideation Homicidal Ideation: No Goal/Treatment Plan - Goal/Treatment Plan Need for Continued Stay: Remain at risks for inpatient hospitalization, Discharge may exacerbated symptoms Progress Toward Problem(s) and Goals/Treatment Plan: Schizoaffective Disorder -Continue Clozapine 50 mg PO Daily/ 200 mg PO HS -Continue to monitor ANC/ CBC -Continue Effexor 150 mg PO Daily -Continue Cogentin 0.5 mg PO HS -Individual and group therapy -Psychoeducation -Disposition planning- likely discharge on if patient continues to improve clinically Estimated Date of D/C: 07/31/17
[2017-07-29 18:27] VITALS: RESP 20
[2017-07-30 07:47] LABS: BASO # 0.1 K/uL (0.0-0.2); EOS # 0.3 K/uL (0.0-0.7); EOS % 4.4 % (0.0-4.0); HEMOGLOBIN 12.4 g/dL (12.0-16.0); LYMPH % 27.8 % (20.0-40.0); MEAN CORPUSCULAR HEMOGLOBIN 30.2 pg (27.0-31.0); MEAN CORPUSCULAR HGB CONC 33.3 g/dL (33.0-37.0); MEAN PLATELET VOLUME 9.5 fl (7.2-11.7); MONO # 0.7 K/uL (0.0-0.8); MONO % 9.9 % (0.0-10.0); NEUT % 56.9 % (50.0-75.0); NRBC % 0.4 % (0.0-0.0); RBC 4.11 Mil/uL (3.80-5.20); RED CELL DISTRIBUTION WIDTH 12.6 % (11.5-14.5); WHITE BLOOD COUNT 7.1 K/uL (4.8-10.8)
[2017-07-30] MEDS: Venlafaxine 150 mg ER Cap PO SCH (08:56)
--- NOTE | 2017-07-30 11:19 | PCM.PYCHPN ---
Psychiatric Progress Note - Psychiatric Progress Note Patient seen today, length of contact: Patient evaluated, case discussed with team, chart reviewed Patient Chief Complaint: "I'm getting better." Problems Identified/Issues Discussed: Patient continues to improve clinically. She reports less AH, last heard yesterday. NO acute paranoia/delusions. NO SI/HI. We discussed the r/b/se of Clozapine and the importance of compliance with treatment and medications. We discussed likely discharge tomorrow if she continues to improve clinically. CBC/ANC faxed to [facility] today. Medication Change: No Medical Record Reviewed: Yes Consults ordered or reviewed: Medicine consult Mental Status Examination - Cognitive Function Orientation: Person, Place, Situation, Time Memory: Intact Attention: WNL Concentration: Poor Association: WNL Fund of Knowledge: WNL Decription of patient's judgement and insights: Improving I/J - Mood Mood: Neutral - Affect Affect: Constricted - Speech Speech: Appropriate - Formal Thought Process Formal Thought Process: No Impairment Psychotic Thoughts and Behaviors: Denies acute AH/paranoia - Suicidal Ideation Suicidal Ideation: No - Homicidal Ideation Homicidal Ideation: No Goal/Treatment Plan - Goal/Treatment Plan Need for Continued Stay: Remain at risks for inpatient hospitalization, Discharge may exacerbated symptoms Progress Toward Problem(s) and Goals/Treatment Plan: Schizoaffective Disorder -Continue Clozapine 50 mg PO Daily/ 200 mg PO HS -Continue to monitor ANC/ CBC -Continue Effexor 150 mg PO Daily -Continue Cogentin 0.5 mg PO HS -Individual and group therapy -Psychoeducation -Disposition planning- likely discharge on if patient continues to improve clinically Estimated Date of D/C: 07/31/17
[2017-07-30 18:09] VITALS: BP 139/73; PULSE 118; TEMP 98.1
[2017-07-31] MEDS: Venlafaxine 150 mg ER Cap PO SCH (08:00)
--- NOTE | 2017-07-31 08:48 | PCM.PYCHDC ---
Mental Status Examination - Mental Status Examination Orientation: Person, Place, Situation, Time Memory: Intact Mood: Neutral Affect: Broad Speech: Appropriate Attention: WNL Concentration: WNL Association: WNL Fund of Knowledge: WNL Formal Thought Process: No Impairment Description of patient's judgement and insight: Fair I/J Psychotic Thoughts and Behaviors: No AH/VH/paranoia Suicidal Ideation: No Current Homicidal Ideation?: No Discharge Summary - Discharge Note Reason for Hospitalization: HPI: 26 yo female w/ h/o schizoaffective disorder, recently discharged from [facility] , presents with worsening auditory hallucinations, paranoia, persecutory delusions, somatic delusions. +Feelings of depression/anxiety/hopelessness. PPHx: Multiple past psychiatric admissions for psychosis. PMHX: No acute medical issues PSurgical Hx: Denies Allergies: Haloperidol Family Hx: Uncle- Schizophrenia Social: Lives in half-way, denies alcohol use, smoking, or illicit drug use Consultations:: List each consultation separately and include: 1. Reason for request. 2. Findings. 3. Follow-up Consultations: Medicine consult Summary of Hospital Course include:: 1. Description of specific treatment plan utilized for patients during their course of treatmen. 2. Summarize the time- course for resolution of acute symptoms and/or regressed behaviors. 3. Describe issues identified and worked on during hospitalization. 4. Describe medication utilized. 5. Describe medical problems identified and treated. 6. Reassessment of suicide risk Summary of Hospital Course: Patient was admitted to the psychiatry unit. Individual and group therapy were provided. Patient was started on Clozapine and titrated up to 50 mg PO AM/ 200 mg PO HS. She was also stabilized on Effexor, Gabapentin, and Benztropin. She reports improvement of her psychotic symptoms and upon discharge did not have any acute psychotic symptoms. Psychoeducation provided re: the importance of compliance with treatment, medications and routine blood draws. ANC 4 on . ANC faxed to [facility] on 07/30/17. - Final Diagnosis (DSM 5) Condition upon Discharge: STABLE DSM 5: Schizoaffective Disorder Disposition: HOME/ ROUTINE Follow-up Treatment Plan: Schizoaffective Disorder -Continue Clozapine 50 mg PO Daily/ 200 mg PO HS -Continue to monitor ANC/ CBC -Continue Effexor 150 mg PO Daily -Continue Cogentin 0.5 mg PO HS -Psychoeducation -Disposition planning- discharge w/ outpatient follow-up Prescriptions/Medication Reconciliation: Benztropine [Cogentin] 0.5 mg PO HS #30 tab Clozapine 200 mg PO HS #7 tablet Clozapine 50 mg PO DAILY #7 tablet Gabapentin [Neurontin] 200 mg PO TID #180 cap Venlafaxine [Effexor XR] 150 mg PO DAILY #30 cer - Smoking Cessation Smoking Cessation Medication prescribed: No Reason for not providing: Not indicated - Antipsychotic Medications Pt discharged on 2 or more routine antipsychotic medications: No
== END 2017-07-31 09:25 | disposition home or self-care (01) | DRG 430 ==
LOC: H.ER 10:55 → H.ERHOLD 12:39 → H.PSYCH 14:19
PROVIDERS: ADMIT Psychiatry & Neurology Psychiatry; ATTEND Psychiatry & Neurology Psychiatry
PROC: GZHZZZZ Group Psychotherapy (ICD-10-PCS; principal; 2017-07-11)
PROC: GZ56ZZZ Individual Psychotherapy, Supportive (ICD-10-PCS; 2017-07-11)
DX: F25.9 Schizoaffective disorder, unspecified (principal); R45.851 Suicidal ideations; R00.0 Tachycardia, unspecified

== ENCOUNTER 2018-03-16 14:59 | Emergency (ER) | payer OTHER ==
[2018-03-16 15:26] VITALS: BP 138/82; PULSE 100; RESP 18; TEMP 98; O2SAT 100
--- NOTE | 2018-03-16 15:34 | ED PDOC ---
HPI: General Adult Time Seen by Provider: 03/16/18 15:28 Chief Complaint (Nursing): Medical Clearance Chief Complaint (Provider): Abdominal cramp History Per: Patient History/Exam Limitations: no limitations Additional Complaint(s): 27yo female, otherwise well, comes to ER for evaluation of abdominal cramping. Patient states she is concerned she might be . She reports her LMP was on February 16 and she is due for her next menstrual period on March 20. She denies any vaginal bleeding or discharge; she has no other medical complaints. Past Medical History Reviewed: Historical Data, Nursing Documentation, Vital Signs Vital Signs: Last Vital Signs Temp 98 F 03/16/18 15:23 Pulse 100 H 03/16/18 15:23 Resp 18 03/16/18 15:23 BP 138/82 03/16/18 15:23 Pulse Ox 100 03/16/18 15:35 - Medical History PMH: Anemia, Anxiety, Bipolar Disorder, Bronchitis, Depression, Schizophrenia Denies: Diabetes, Hepatitis, HIV, HTN, Chronic Kidney Disease, Seizures, Sexually Transmitted Disease - Surgical History Surgical History: No Surg Hx - Family History Family History: States: No Known Family Hx - Living Arrangements Living Arrangements: With Family - Immunization History Hx Influenza Vaccination: No - Home Medications Home Medications: Ambulatory Orders Medication Instructions Recorded Benztropine [Cogentin] 0.5 mg PO HS #30 tab 07/29/17 Clozapine 50 mg PO DAILY #7 tablet 07/29/17 Clozapine 200 mg PO HS #7 tablet 07/29/17 Gabapentin [Neurontin] 200 mg PO TID #180 cap 07/29/17 Venlafaxine [Effexor XR] 150 mg PO DAILY #30 cer 07/29/17 - Allergies Allergies/Adverse Reactions: Allergies Allergy/AdvReac Type Severity Reaction Status Date / Time haloperidol [From Haldol] Allergy ANGIOEDEMA Verified 06/17/17 13:23 Review of Systems ROS Statement: Except As Marked, All Systems Reviewed And Found Negative Gastrointestinal: Positive for: Other (abdominal cramps) Genitourinary Female: Negative for: Vaginal Discharge, Vaginal Bleeding Physical Exam - Reviewed Nursing Documentation Reviewed: Yes Vital Signs Reviewed: Yes - Physical Exam Appears: Positive for: Non-toxic, No Acute Distress Head Exam: Positive for: ATRAUMATIC, NORMAL INSPECTION, NORMOCEPHALIC Skin: Positive for: Normal Color Neck: Positive for: Supple Cardiovascular/Chest: Positive for: Regular Rate, Rhythm Respiratory: Positive for: Normal Breath Sounds Neurologic/Psych: Positive for: Alert, Oriented - Laboratory Results Urine POC: Negative - ECG O2 Sat by Pulse Oximetry: 100 (RA) Pulse Ox Interpretation: Normal Medical Decision Making Medical Decision Making: Impression: Abdominal discomfort Plan: * UPreg 1534 Upreg is negative. Patient informed of results and is stable for discharge home. Scribe Attestation: Documented by Alla Adhikari acting as a scribe for RENATE Sinha. Provider Attestation: All medical record entries made by the Scribe were at my direction and personally dictated by me. I have reviewed the chart and agree that the record accurately reflects my personal performance of the history, physical exam, medical decision making, and the department course for this patient. I have also personally directed, reviewed, and agree with the discharge instructions and disposition. Disposition - Clinical Impression Clinical Impression: Negative test - Disposition Disposition: Routine/Home Disposition Time: 15:35 Condition: STABLE Instructions: Tests Forms: [employer] (Croatian)
== END 2018-03-16 15:37 | disposition home or self-care (01) ==
LOC: H.ER 14:59
DX: Z32.02 Encounter for pregnancy test, result negative (principal)

== ENCOUNTER 2018-08-12 06:51 | Emergency (ER) | payer MEDICARE, OTHER ==
[2018-08-12 07:04] VITALS: BP 127/70; RESP 20; TEMP 98.3; O2SAT 98
[2018-08-12 07:05] VITALS: BMI 35.5
--- NOTE | 2018-08-12 07:52 | ED PDOC ---
HPI: General Adult Time Seen by Provider: 08/12/18 07:08 Chief Complaint (Nursing): Abnormal Skin Integrity Chief Complaint (Provider): Abnormal Skin Integrity History Per: Patient History/Exam Limitations: no limitations Onset/Duration Of Symptoms: Days (x7) Current Symptoms Are (Timing): Still Present Additional Complaint(s): Zehra Juárez is a 27 year old female with a past medical history of anxiety, depression, and anemia who is presenting to the ED for evaluation of mildly itchy rash to left arm onset 1 week ago. Patient states that she didnt get a bite and reports that the rash is not spreading. She denies any shortness of breath, chest pain or any other medical complaints. PMD: Keanu Osorio Past Medical History Reviewed: Historical Data, Nursing Documentation, Vital Signs Vital Signs: Last Vital Signs Temp 98.3 F 08/12/18 07:04 Pulse 114 H 08/12/18 07:04 Resp 20 08/12/18 07:04 BP 127/70 08/12/18 07:04 Pulse Ox 98 08/12/18 07:04 - Medical History PMH: Anemia, Anxiety, Bipolar Disorder, Bronchitis, Depression, Schizophrenia Denies: Diabetes, Hepatitis, HIV, HTN, Chronic Kidney Disease, Seizures, Sexually Transmitted Disease - Surgical History Surgical History: No Surg Hx - Family History Family History: States: Other Other Family History: psychiatric family history - Social History Current smoker - smoking cessation education provided: No Alcohol: None Drugs: Denies - Immunization History Hx Influenza Vaccination: No - Home Medications Home Medications: Ambulatory Orders Medication Instructions Recorded RX: Benztropine [Cogentin] 0.5 mg PO HS #30 tab 07/29/17 RX: Clozapine 50 mg PO DAILY #7 tablet 07/29/17 RX: Clozapine 200 mg PO HS #7 tablet 07/29/17 RX: Gabapentin [Neurontin] 200 mg PO TID #180 cap 07/29/17 RX: Venlafaxine [Effexor XR] 150 mg PO DAILY #30 cer 07/29/17 Triamcinolone 0.1% [Triamcinolone 1 appful TP BID #15 tube 08/12/18 0.1% Cream] - Allergies Allergies/Adverse Reactions: Allergies Allergy/AdvReac Type Severity Reaction Status Date / Time haloperidol [From Haldol] Allergy ANGIOEDEMA Verified 12/19/17 13:23 Review of Systems ROS Statement: Except As Marked, All Systems Reviewed And Found Negative Cardiovascular: Negative for: Chest Pain Respiratory: Negative for: Shortness of Breath Skin: Positive for: Rash Physical Exam - Reviewed Nursing Documentation Reviewed: Yes Vital Signs Reviewed: Yes - Physical Exam Appears: Positive for: Well, Non-toxic, No Acute Distress Head Exam: Positive for: ATRAUMATIC, NORMAL INSPECTION, NORMOCEPHALIC Skin: Positive for: Rash (2 areas of erythema to left forearm: 1.5 cm in diameter with mild induration) Eye Exam: Positive for: Normal appearance Extremity: Positive for: Normal ROM. Negative for: Deformity, Swelling Neurologic/Psych: Positive for: Alert, Oriented. Negative for: Motor/Sensory Deficits - ECG O2 Sat by Pulse Oximetry: 98 (RA) Pulse Ox Interpretation: Normal Medical Decision Making Medical Decision Making: Scribe Attestation: Documented by Rosaline Solano, acting as a scribe for Priscilla Rojas MD. Provider Scribe Attestation: All medical record entries made by the Scribe were at my direction and personally dictated by me. I have reviewed the chart and agree that the record accurately reflects my personal performance of the history, physical exam, medical decision making, and the department course for this patient. I have also personally directed, reviewed, and agree with the discharge instructions and disposition. Disposition - Clinical Impression Clinical Impression: Contact dermatitis - Patient ED Disposition Is Patient to be Admitted: No Doctor Will See Patient In The: Office - Disposition Referrals: Keanu Marlow MD [Staff Provider] - Disposition: Routine/Home Disposition Time: 15:00 Condition: STABLE Prescriptions: Triamcinolone 0.1% [Triamcinolone 0.1% Cream] 1 appful TP BID #15 tube Instructions: Contact Dermatitis (DC) Forms: [employer] (Greenlandic), [facility] ED School/Work Excuse - POA Present On Arrival: None
[2018-08-12 08:21] VITALS: PULSE 82
== END 2018-08-12 08:20 | disposition home or self-care (01) ==
LOC: H.ER 06:51
DX: L25.9 Unspecified contact dermatitis, unspecified cause (principal); Z86.59 Personal history of other mental and behavioral disorders; Z88.8 Allergy status to other drugs, medicaments and biological substances